=== PATIENT | female | born 1985 | race Caucasian/White ===

== ENCOUNTER 2020-07-30 09:40 | Outpatient (REF) | payer OTHER, SELFPAY ==
[2020-07-31 09:09] LABS: BV Int Neg Control Negative (Negative); BV Int Pos Control Positive (Positive)
[2020-08-01 18:26] LABS: HPV mRNA E6/E7 rflx Not Detected (Not Detected)
== END 2020-07-30 09:41 | disposition home or self-care (01) ==
LOC: HO.LAB 09:40
PROVIDERS: Visit Provider Obstetrics & Gynecology
DX: Z01.419 Encounter for gynecological examination (general) (routine) without abnormal findings (principal); R10.31 Right lower quadrant pain; Z11.3 Encounter for screening for infections with a predominantly sexual mode of transmission; Z11.51 Encounter for screening for human papillomavirus (HPV); Z88.2 Allergy status to sulfonamides; Z88.8 Allergy status to other drugs, medicaments and biological substances
CPT/HCPCS: 36415; 87480; 87510; 87624; 87660; 88142

== ENCOUNTER 2020-08-08 10:53 | Outpatient (REF) | payer OTHER, SELFPAY ==
--- NOTE | ~2020-08-08 | US_ITS ---
EXAMINATION: US PELVIS COMPLETE US PELVIS TRANSVAGINAL CLINICAL INFORMATION: Right lower quadrant pain. Pelvic and perineal pain. LMP 07/25/2020. COMPARISON: None TECHNIQUE: Transabdominal and transvaginal imaging was performed. FINDINGS: The uterus is of normal size and echogenicity measuring 8.2 x 3.3 x 6.1 cm. A regular homogeneous endometrium is identified measuring 0.8 cm. The uterus has a slightly arcuate appearance. Both ovaries are of normal size and echogenicity. The right measures 3.7 x 2.3 x 3.4 cm for a volume of 15.2 mL. Possible right ovarian corpus luteum measuring 2.9 x 1.7 x 2.5 cm. The left measures 3 x 1.8 x 1.9 cm for a volume of 5.3 mL. There is trace pelvic free fluid. US/US transvaginal IMPRESSION: 1. Slightly arcuate appearance of the uterus. Otherwise, unremarkable uterus and endometrium. 2. Possible right ovarian corpus luteum measuring 2.9 cm. No followup imaging recommended. 3. Sonographically unremarkable left ovary. 4. Trace pelvic free fluid.
--- NOTE | ~2020-08-08 | US_ITS ---
EXAMINATION: US PELVIS COMPLETE US PELVIS TRANSVAGINAL CLINICAL INFORMATION: Right lower quadrant pain. Pelvic and perineal pain. LMP 07/25/2020. COMPARISON: None TECHNIQUE: Transabdominal and transvaginal imaging was performed. FINDINGS: The uterus is of normal size and echogenicity measuring 8.2 x 3.3 x 6.1 cm. A regular homogeneous endometrium is identified measuring 0.8 cm. The uterus has a slightly arcuate appearance. Both ovaries are of normal size and echogenicity. The right measures 3.7 x 2.3 x 3.4 cm for a volume of 15.2 mL. Possible right ovarian corpus luteum measuring 2.9 x 1.7 x 2.5 cm. The left measures 3 x 1.8 x 1.9 cm for a volume of 5.3 mL. There is trace pelvic free fluid. US/US pelvic complete IMPRESSION: 1. Slightly arcuate appearance of the uterus. Otherwise, unremarkable uterus and endometrium. 2. Possible right ovarian corpus luteum measuring 2.9 cm. No followup imaging recommended. 3. Sonographically unremarkable left ovary. 4. Trace pelvic free fluid.
[2020-08-09 04:23] LABS: HIV AB/AG Nonreactive (Nonreactive); HIV Num 1 0.09 S/CO (0.00-0.99)
[2020-08-09 04:40] LABS: HBsAGNum1 0.14 S/CO (0.00-0.99); Hepatitis B Surface Antigen Negative (Negative)
[2020-08-09 16:14] LABS: Syphilis Screen Nonreactive (Nonreactive)
== END 2020-08-08 10:54 | disposition home or self-care (01) ==
LOC: HO.US 10:53
PROVIDERS: PCP Family Medicine; Visit Provider Obstetrics & Gynecology
DX: R10.2 Pelvic and perineal pain (principal); R10.31 Right lower quadrant pain; Z11.3 Encounter for screening for infections with a predominantly sexual mode of transmission; Z11.4 Encounter for screening for human immunodeficiency virus [HIV]; Z11.59 Encounter for screening for other viral diseases
CPT/HCPCS: 36415; 76830; 76856; 86780; 87340; 87389

== ENCOUNTER → 2020-08-15 12:22 | Outpatient (BNVA) | payer OTHER, SELFPAY | PROVIDERS: PCP Family Medicine; Visit Provider Obstetrics & Gynecology ==

== ENCOUNTER → 2020-08-16 12:13 | Outpatient (BNVA) | payer OTHER, SELFPAY | PROVIDERS: PCP Family Medicine; Visit Provider Obstetrics & Gynecology | DX: R10.32 Left lower quadrant pain (principal) | CPT/HCPCS: Q3014 ==

== ENCOUNTER 2020-08-23 13:13 | Outpatient (REF) | payer OTHER, SELFPAY ==
--- NOTE | ~2020-08-23 | MR_ITS ---
EXAMINATION: MR PELVIS WITHOUT AND WITH CONTRAST CLINICAL INFORMATION: Arcuate uterus COMPARISON: 08/08/2020 ultrasound TECHNIQUE: Multiple routine MRI sequences through the pelvis were obtained on a high-field 1.5 Cherrie MRI. Pre and postcontrast images were evaluated. 7 mL of Gadavist intravenous contrast was utilized without incident. FINDINGS: Uterus is anteroverted and grossly unremarkable. I do not appreciate any mullerian anomaly or irregularity. The junctional zone is thin and distinct. No uterine fibroids or mass lesion. Physiologic changes are seen within the bilateral adnexa with tiny follicles noted. No adnexal mass lesion. No significant free fluid. Bladder is decompressed and unremarkable. Visualized bowel is unremarkable MR/MR pelvis wo/w con IMPRESSION: Essentially normal pelvic MRI for age. I do not appreciate any mullerian anomaly to the uterus. The uterus configuration is within normal limits. No adnexal mass.
== END 2020-08-23 13:14 | disposition home or self-care (01) ==
LOC: HO.MRI 13:13
PROVIDERS: Visit Provider Obstetrics & Gynecology
DX: Q51.810 Arcuate uterus (principal)
CPT/HCPCS: 72197; A9585

== ENCOUNTER → 2020-09-13 11:58 | Outpatient (BNVA) | payer OTHER, SELFPAY | PROVIDERS: Visit Provider Obstetrics & Gynecology | DX: R93.5 Abnormal findings on diagnostic imaging of other abdominal regions, including retroperitoneum (principal) | CPT/HCPCS: Q3014 ==

== ENCOUNTER → 2021-08-01 09:22 | Outpatient (BNVA) | payer OTHER, SELFPAY | PROVIDERS: PCP Family Medicine; Visit Provider Advanced Practice Midwife | DX: R10.31 Right lower quadrant pain (principal); R10.2 Pelvic and perineal pain; Z30.40 Encounter for surveillance of contraceptives, unspecified; Z11.3 Encounter for screening for infections with a predominantly sexual mode of transmission; Z12.4 Encounter for screening for malignant neoplasm of cervix ==

== ENCOUNTER 2022-04-30 16:19 | Emergency (ER) | payer SELFPAY ==
[2022-04-30 17:24] VITALS: BP 115/68; PULSE 78; RESP 16; O2SAT 99; BMI 24.7
--- NOTE | 2022-04-30 18:48 | ED.EXTPRO ---
HPI - Extremity Problem General Chief complaint: Extremity Injury, Upper Stated complaint: right shoulder pain Time Seen by Provider: 04/30/22 18:48 Source: patient Mode of arrival: ambulatory Limitations: no limitations History of Present Illness HPI Narrative: Patient is a 36-year-old female who presents emergency department for evaluation of atraumatic right shoulder pain. She states that she ?thinks she over did it? 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 Symptom onset was 1 week ago. She states that time she does get pain to the bilateral shoulders but it typically resolves after couple of days. Denies any numbness or tingling to the arm, denies any cold sensation. Denies associated neck pain, neck stiffness. Denies any fevers, chills, redness, warmth, rashes or lesions. No known prior injury to this arm. Denies abdominal pain, nausea, vomiting. No chest pain, no shortness of breath. Related Data Home Medications Medication Instructions Recorded Confirmed citalopram 40 mg tablet 40 mg PO DAILY 07/30/20 Previous Rx's Medication Instructions Recorded norgestimate 0.25 mg-ethinyl 1 tab PO DAILY #28 tabs 08/01/21 estradiol 35 mcg tablet (Sprintec (28)) naproxen 500 mg tablet 500 mg PO BID PRN pain #14 tabs 04/30/22 Allergies Allergy/AdvReac Type Severity Reaction Status Date / Time sulfamethoxazole Allergy Intermediate DIARRHEA Verified 08/01/21 09:37 [From BACTRIM] trimethoprim [From BACTRIM] Allergy Intermediate DIARRHEA Verified 08/01/21 09:37 Sulfa (Sulfonamide Allergy Unknown vomiting Verified 08/01/21 09:37 Antibiotics) bactrim Allergy Unknown vomiting Uncoded 08/16/20 12:15 Review of Systems Review of Systems: Musculoskeletal: Positive right shoulder pain as noted in HPI PMFSH Past Medical History Attestation statement: The following information was validated with the patient. Source: old records reviewed Medical History Anxiety Surgical History History of D&C Family History Family History Father Diabetes Mother Diabetes Stroke Maternal Grandfather Cancer Mesothelioma Paternal Uncle Stomach cancer Family/Other FH: mental illness Social History Social History Alcohol intake: current Alcohol intake frequency: holidays/special occasions only Substance Use Type: Marijuana Advance Directives: No Advance Directives Information Provided: No Sexual orientation: Straight/Heterosexual Gender identity: Female Physical Exam Vital Signs: Vital Signs: Last Vital Signs Temp 97.6 F 04/30/22 18:58 Pulse 78 04/30/22 17:24 Resp 16 04/30/22 17:24 BP 115/68 04/30/22 17:24 Pulse Ox 99 04/30/22 17:24 O2 Del Method 04/30/22 17:24 BMI result Body Mass Index 24.7 Appearance: Alert.?Oriented to person, place and time. No acute distress.?Normal affect. Neck: Normal inspection.? Neck supple.??No midline cervical spine tenderness, step-offs, deformities. CVS: Heart sounds normal. Normal heart rate and rhythm.? Pulses normal.?? Respiratory: No respiratory distress.? Lung sounds clear to auscultation bilaterally?? Abdomen: Soft and non-tender. Skin: Skin warm and dry.? Normal skin color.? Extremities: Pain upon palpation of the anterior shoulder/AC joint. No palpable separation, no obvious deformity. 2+ radial pulse is present. Neurovascularly intact distally. No erythema, warmth, swelling. Limited overhead extension, otherwise able to abduct to 90 degrees, mild decreased external rotation. No impairment in adduction Neuro: Moves all extremities spontaneously. Sensation intact bilaterally. Ambulates with normal steady gait. Course Course Course Narrative: Patient is a 36-year-old female with no pertinent past medical history presenting to emergency department for evaluation of atraumatic right shoulder pain. No obvious deformity, low suspicion for fracture or dislocation, XR imaging deferred. Has been taking ibuprofen with only minimal improvement. Keeping shoulder in a sling and avoiding exacerbating movements. History and physical examination appear most consistent with musculoskeletal pain. The extremity is neurovascularly intact distally. Afebrile, no tachycardia, does not appear consistent with septic joint. Suspect tendonitis of the shoulder. Advised rest, ice, gentle stretching and [id number] exercises, naproxen/acetaminophen for pain. Advised outpatient follow-up with primary care provider/Orthopedics for persistent symptoms. Discussed worrisome signs and symptoms to return back to the emergency department for. MDM - Extremity (Nontraumatic) Medical Records Attestation: I reviewed the patient's medical records. Discharge Plan Discharge Clinical Impression: Right shoulder tendinitis Patient Disposition: Home, Self-Care Additional Instructions: As discussed, please rest, avoid heavy lifting, gently stretch and range the shoulder as tolerated. You can take Tylenol 500 mg, 2 tablets (1,000mg) every 4-6 hours as needed for pain, but not to exceed 3 doses daily (3,000mg).? Prescription for naproxen was sent to your pharmacy, do not take Advil/Motrin/Aleve/aspirin while taking this medication. Follow-up with your primary care provider, in addition to have been given contact information for orthopedics if you continue to have symptoms over the next week or 2 you may follow-up with them as well. Return to the emergency department any new or worsening symptoms or concerns. Prescriptions: New naproxen 500 mg tablet 500 mg PO BID PRN (Reason: pain) Qty: 14 0RF No Action citalopram 40 mg tablet 40 mg PO DAILY norgestimate-ethinyl estradiol [Sprintec (28)] 0.25-35 mg-mcg tablet 1 tab PO DAILY Qty: 28 11RF Referrals: Solomon Taylor MD [Physician] - Rehana Mackenzie MD [Primary Care Provider] - Interventions: ED Discharge Assessment Last Done: 04/30/22 19:04 Discharge Date/Time: 04/30/22 19:04
[2022-04-30 18:58] VITALS: TEMP 36.4
== END 2022-04-30 19:04 | disposition home or self-care (01) ==
PROVIDERS: Emergency Provider Emergency Medicine; PCP Family Medicine
DX: M75.91 Shoulder lesion, unspecified, right shoulder (principal); M25.511 Pain in right shoulder
CPT/HCPCS: 99282; 99283

== ENCOUNTER → 2022-08-03 15:12 | Outpatient (BNVA) | payer SELFPAY | PROVIDERS: PCP Family Medicine; Visit Provider Advanced Practice Midwife | DX: Z13.89 Encounter for screening for other disorder (principal) ==

== ENCOUNTER 2023-06-15 13:42 | Outpatient (AMB) | payer OTHER, SELFPAY ==
[2023-06-15 13:51] VITALS: BP 102/66; BMI 29.0
--- NOTE | 2023-06-15 13:51 | MHC.OFFVIS ---
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 She denies any contraindications to control such as: migraines with aura, history of DVT or pulmonary emboli, high blood pressure, liver disease, thrombolic disorders, Lupus, +NIKKY, breast cancer, or smoking. COUNT INCLUDES THE [facility] Medical History Anxiety Surgical History History of D&C Family History Father Diabetes Mother Diabetes Stroke Maternal Grandfather Cancer Mesothelioma Paternal Uncle Stomach cancer Family/Other FH: mental illness Social History Alcohol intake: former Patient Tobacco Use Status: Never used Tobacco Substance Use Type: Marijuana Sexual orientation: Straight/Heterosexual Gender identity: Female Female Reproductive History Menstrual Age of Menarche: 10 Duration of menses: 3-5 days Date of last menstrual period: 05/26/23 control method: none Review of Systems Const All systems reviewed & are unremarkable except as noted in HPI and below Endo Reports no additional complaints Physical Exam Vital Signs: Last Vital Signs BP 102/66 06/15/23 13:51 BMI result Body Mass Index 29.0 Const General: cooperative, healthy appearing and no acute distress Psych Appearance: well kempt Attitude: cooperative Thought process: Normal thought process present Assessment & Plan Assessment & Plan (1) control counseling: Code(s): Z30.09 - Encounter for other general counseling and advice on contraception Plan Control Counseling Use and side effects of control: Instructed to start the pill within the first 5 days of the menstrual period. Recommended to take pill at same time every day and with food to prevent stomach upset. Switch to bedtime intake with food if still experiencing nausea. Consider setting the cell phone for alerts as a reminder to take the pill at the same time. Use a back up method (condoms or abstinence if needed) if any late or missed doses until the end of the pill pack. Take the dose as soon as possible, and take your regular pill on time. If you miss the pill often, then consider another option of control. Always use condoms for STI prevention if indicated. Instructed patient to take for at least 3 months the body is acclimated to it. Most side effects go away with time in the first three months. Warnings: go to ED if and loss of vision/blindness, severe headache, chest pain or difficulty breathing, severe abdominal pain, or any pain or swelling in an extremity. Return for pill check with her annual in July, or sooner if any concerns. All of her questions and concerns were addressed to the best of my ability and shared decision making. She is agreeable to plan of care. Medications: New levonorgestrel-ethinyl estrad 0.15 mg-30 mcg (91) (Jolessa) 1 tab PO DAILY 91 ea 0RF Coding Level of Care Code Est Pt Level 3 (69879) Diagnoses control counseling Z30.09
== END 2023-06-15 16:23 | disposition home or self-care (01) ==
PROVIDERS: PCP Family Medicine; Visit Provider Advanced Practice Midwife
DX: Z30.09 Encounter for other general counseling and advice on contraception (principal)
CPT/HCPCS: 99213

== ENCOUNTER → 2023-06-15 13:42 | Outpatient (BNVA) | payer OTHER, SELFPAY | PROVIDERS: PCP Family Medicine; Visit Provider Advanced Practice Midwife ==

== ENCOUNTER 2023-08-05 15:13 | Outpatient (REF) | payer OTHER, SELFPAY ==
[2023-08-11 12:49] LABS: HPV mRNA E6/E7 rflx Not Detected (Not Detected)
== END 2023-08-05 15:14 | disposition home or self-care (01) ==
LOC: HO.LNP 15:13
PROVIDERS: PCP Family Medicine; Visit Provider Advanced Practice Midwife
DX: Z01.419 Encounter for gynecological examination (general) (routine) without abnormal findings (principal); Z11.51 Encounter for screening for human papillomavirus (HPV); Z87.42 Personal history of other diseases of the female genital tract
CPT/HCPCS: 87624; 88142

== ENCOUNTER 2023-08-05 15:13 | Outpatient (AMB) | payer OTHER, SELFPAY ==
--- NOTE | 2023-08-05 15:14 | A.OFFVIS_ITS ---
Intake Vital Signs 08/05/23 15:16 Height 5 ft 3 in Weight 160 lb BMI 28.3 BP 104/60 Intake Visit Reasons: Annual Remote Coders: Remote Coders Present (Breann) Allergies sulfamethoxazole [From BACTRIM] Allergy (Intermediate, Verified 08/05/23 15:16) DIARRHEA Is last menstrual period known: Yes Last menstrual period: 06/26/23 HPI HPI Comments History of Present Illness Details She is a premenopausal woman presenting for annual examination. Doing well with no concerns. She tries to eat healthy and stays active with exercise. Doing well on the OCP's. She denies any contraindications to control such as: migraines with aura, history of DVT or pulmonary emboli, high blood pressure, liver disease, thrombolic disorders, Lupus, +NIKKY, breast cancer, or smoking. Currently is sexually active. She denies vaginal itching and irritation. STI screening offered; she declined. Denies family history of breast, ovarian or colon cancer. Last pap smear 2020, negative. History of abnormal Pap. [facility] Medical History Anxiety Surgical History History of D&C Family History Father Diabetes Mother Diabetes Stroke Maternal Grandfather Cancer Mesothelioma Paternal Uncle Stomach cancer Family/Other FH: mental illness Social History (Updated 08/05/23 @ 15:30 by Miryam Willingham CNM) Alcohol intake: former Patient Tobacco Use Status: Never used Tobacco Substance Use Type: Marijuana Current occupation: [employer] Sexual orientation: Straight/Heterosexual Gender identity: Female Female Reproductive History Menstrual Age of Menarche: 10 Duration of menses: 3-5 days Date of last menstrual period: 06/26/23 control method: pills Total pregnancies: 1 Number of Living Children: 0 Ab induced: 1 Date of last pap smear: 07/30/20 (neg pap and hpv) History of abnormal pap smear: Yes (04/16 ascus /18+hpv 06/18 colpo jagruti 1) Review of Systems Const All systems reviewed & are unremarkable except as noted in HPI and below Reports as per HPI Eyes Reports no additional complaints ENT Reports no additional complaints Card Reports no additional complaints Resp Reports no additional complaints GI Reports as per HPI and Reports no additional complaints Reports as per HPI Musc Reports no additional complaints Skin/Breast Reports as per HPI Neuro Reports no additional complaints Psych Reports no additional complaints Endo Reports no additional complaints Homer/Lymph Reports no additional complaints Aller/Immun Reports no additional complaints Physical Exam Vital Signs: Last Vital Signs BP 104/60 08/05/23 15:16 BMI result Body Mass Index 28.3 Const General: cooperative, healthy appearing, no acute distress, well developed and alert Orientation/consciousness: patient oriented x3 HEENT Head: Yes normal to inspection Eyes General: appearance normal, both eyes and all related structures Neck Neck: Yes normal visual inspection Thyroid: Thyroid normal Chest Chest palpation & inspection: normal inspection of the chest and other (no puckering, dimpling, peau de orange, retraction, discharge, masses) Breast/axilla inspection: normal inspection of the breasts Breast/axilla palpation: normal palpation of the breasts Resp Effort & Inspection: normal respiratory effort GI Inspection: Yes normal to inspection Palpation (GI): Soft to palpation Rectal Exam - Female: deferred General: Yes bladder normal to palpation External Female Exam: normal external appearance and normal appearance of the urethra Speculum Exam - Vagina: normal appearance of the vagina, normal palpation and normal vaginal discharge Speculum Exam - Cervix: normal appearance of the cervix and normal palpation Bimanual exam- vagina & uterus: normal bimanual exam, normal palpation, uterine size normal, bladder normal to palpation, normal palpation and non-tender Bimanual Exam- Adnexa, other: no masses Skin General skin exam: no rashes or lesions noted Rashes: no rashes Neuro General: patient oriented x3 Cognition (Neuro): normal cognition Extrem General: Yes normal to inspection Psych Attitude: cooperative Thought process: Normal thought process present Assessment & Plan Assessment & Plan (1) Encounter for well woman exam with routine gynecological exam: Code(s): Z01.419 - Encounter for gynecological examination (general) (routine) without abnormal findings Plan Discussed: Current recommendations for pap smears per ASCCP guidelines. Breast awareness and periodic breast exams. Maintain a healthy lifestyle including a well balanced diet and routine exe rcise. Use condoms for STI and prevention. control hormone use warnings: go to ER if and loss of vision, blindness, severe headache, chest pain or difficulty breathing, severe abdominal pain, or any pain or swelling in an extremity. Patient verbalizes understanding and agrees to the plan of care. She was given opportunity to ask questions and all questions were answered to the best of my ability. RTO in one year for annual trim setter helper examination. This note is constructed using voice recognition software. While every effort has been made to ensure accuracy, trust manager errors may have been included. Medications: Refilled levonorgestrel-ethinyl estrad 0.15 mg-30 mcg (91) (Jolessa) 1 tab PO DAILY 91 ea 4RF Coding Level of Care Code Est Pt Prev Care 18-39y(11291) Diagnoses Encounter for well woman exam with routine gynecological exam Z01.419
[2023-08-05 15:16] VITALS: BP 104/60; BMI 28.3
== END 2023-08-05 15:37 | disposition home or self-care (01) ==
LOC: HO.HWS 15:13
PROVIDERS: PCP Family Medicine; Visit Provider Advanced Practice Midwife
DX: Z01.419 Encounter for gynecological examination (general) (routine) without abnormal findings (principal)
CPT/HCPCS: 99395

== ENCOUNTER 2024-09-06 15:12 | Outpatient (AMB) | payer OTHER, SELFPAY ==
--- NOTE | 2024-09-06 15:14 | MHC.OFFVIS ---
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 Doing well with emergency services professional concerns. Grieving the loss of her father in May. Current OCP user, admits to missing OCPs and having some persistent breakthrough bleeding patterns, currently on extended pill packs. Currently is sexually active, not often at this time due to partners medical concerns. She denies vaginal itching and irritation. STI screening offered; she accepts. She tries to eat healthy and stays active with exercise. Denies family history of breast, ovarian or colon cancer. Last pap smear 2023, negative. History of CORAZON 1. She denies any contraindications to control such as: migraines with aura, history of DVT or pulmonary emboli, high blood pressure, liver disease, thrombolic disorders, Lupus, +NIKKY, breast cancer, or smoking. [facility] Medical History (Updated 09/06/24 @ 16:21 by Miryam Willingham CNM) Cervical polyp Breast mass, right Irregular bleeding Anxiety Surgical History History of D&C Family History Father Diabetes Cancer Mother Diabetes Stroke Maternal Grandfather Cancer Mesothelioma Paternal Uncle Stomach cancer Family/Other FH: mental illness Social History Alcohol intake: former Patient Tobacco Use Status: Never used Tobacco Substance Use Type: Marijuana Current occupation: [employer] Sexual orientation: Straight/Heterosexual Gender identity: Female Female Reproductive History Menstrual Age of Menarche: 10 Duration of menses: <3 days Date of last menstrual period: 08/06/24 control method: pills Total pregnancies: 1 Ab induced: 1 Date of last pap smear: 08/05/23 (negative hpv, negative pap smear) History of abnormal pap smear: Yes (04/16 ascus 04/17+hpv 06/18 colpo corazon 1) Review of Systems Const All systems reviewed & are unremarkable except as noted in HPI and below Reports as per HPI Eyes Reports no additional complaints ENT Reports no additional complaints Card Reports no additional complaints Resp Reports no additional complaints GI Reports as per HPI and Reports no additional complaints Reports as per HPI Musc Reports no additional complaints Skin/Breast Reports as per HPI Neuro Reports no additional complaints Psych Reports no additional complaints Endo Reports no additional complaints Homer/Lymph Reports no additional complaints Aller/Immun Reports no additional complaints Physical Exam Const General: cooperative, healthy appearing, no acute distress, well developed and alert Orientation/consciousness: patient oriented x3 HEENT Head: Yes normal to inspection Eyes General: appearance normal, both eyes and all related structures Neck Neck: Yes normal visual inspection Thyroid: Thyroid normal Chest Other: thickening at 06:00 right breast Chest palpation & inspection: normal inspection of the chest and other (no puckering, dimpling, peau de orange, retraction, discharge, masses) Breast/axilla inspection: normal inspection of the breasts Breast/axilla palpation: normal palpation of the breasts Resp Effort & Inspection: normal respiratory effort GI Inspection: Yes normal to inspection Palpation (GI): Soft to palpation Rectal Exam - Female: deferred General: Yes bladder normal to palpation External Female Exam: normal external appearance and normal appearance of the urethra Speculum Exam - Vagina: normal appearance of the vagina, normal palpation and normal vaginal discharge Speculum Exam - Cervix: normal appearance of the cervix, normal palpation and Other cervical findings present (Small polyp- 3 o'clock position, blood at os with the exam ) Bimanual exam- vagina & uterus: normal bimanual exam, normal palpation, uterine size normal, bladder normal to palpation, normal palpation and non-tender Bimanual Exam- Adnexa, other: no masses Skin General skin exam: no rashes or lesions noted Rashes: no rashes Neuro General: patient oriented x3 Cognition (Neuro): normal cognition Extrem General: Yes normal to inspection Psych Other: Tearful discussing her loss Attitude: cooperative Thought process: Normal thought process present Assessment & Plan Assessment & Plan (1) Encounter for well woman exam with routine gynecological exam: Code(s): Z01.419 - Encounter for gynecological examination (general) (routine) without abnormal findings Category: Medical Plan: Discussed: Current recommendations for pap smears per ASCCP guidelines. Breast awareness and periodic breast exams. Workup for breast findings today. Grief process and healing from loss. Effects of stress on the body including menstrual cycle changes. Maintain a healthy lifestyle including a well balanced diet and routine exercise. Use condoms for prevention. control hormone use warnings: go to ER if and loss of vision, blindness, severe headache, chest pain or difficulty breathing, severe abdominal pain, or any pain or swelling in an extremity. Patient verbalizes understanding and agrees to the plan of care. She was given opportunity to ask questions and all questions were answered to the best of my ability. RTO in one year for annual emergency services professional examination. This note is constructed using voice recognition software. While every effort has been made to ensure accuracy, investigator welfare errors may have been included. (2) Irregular bleeding: Code(s): N92.6 - Irregular menstruation, unspecified Category: Medical Plan: We will consider restarting OCPs after the breast workup. Breakthrough bleeding is common with missed pills. GC chlamydia and BV panel obtained today. Plan pelvic ultrasound. Follow up pending results. Total time I personally spent on visit and management today: ?10 minutes. Time spent included review of pertinent office notes in the electronic health record; review of laboratory and imaging results; review of personal family medical history; performing physical exam; discussing diagnosis and plan of care with the patient; documenting the encounter in the EMR. (3) Breast mass, right: Code(s): N63.10 - Unspecified lump in the right breast, unspecified quadrant Category: Medical Qualifiers: Breast mass location: unspecified quadrant Qualified Code(s): N63.10 - Unspecified lump in the right breast, unspecified quadrant Plan: Total time I personally spent on visit and management today: ?10 minutes. Time spent included review of pertinent office notes in the electronic health record; review of laboratory and imaging results; review of personal family medical history; performing physical exam; discussing diagnosis and plan of care with the patient; documenting the encounter in the EMR. (4) Cervical polyp: Code(s): N84.1 - Polyp of cervix uteri Category: Medical Plan: Discussed cervical polyp findings, plan re-evaluation at next visit for removal. Plan Discuss plan of care for the findings on exam today to include right breast ultrasound and bilateral diagnostic mammogram, surgical consult if indicated, follow up in office here for results. Due to the irregular bleeding she will stop using control for the time being and is able to use condoms or abstinence. Orders: Orders MM tomosynthesis diagnostic BI Today N63.10 - Unspecified lump in the right breast, unspecified quadrant, Z12.31 - Encounter for screening mammogram for malignant neoplasm of breast US breast RT limited Today N63.10 - Unspecified lump in the right breast, unspecified quadrant CT NG by PCR Today N92.6 - Irregular menstruation, unspecified, Z01.419 - Encounter for gynecological examination (general) (routine) without abnormal findings US pelvic and transvaginal Today N92.6 - Irregular menstruation, unspecified Bacterial Vaginosis Panel Today N92.6 - Irregular menstruation, unspecified, Z01.419 - Encounter for gynecological examination (general) (routine) without abnormal findings Coding Level of Care Code Est Pt Level 3 (88058) Est Pt Prev Care 18-39y(57880) Diagnoses Encounter for well woman exam with routine gynecological exam Z01.419 Irregular bleeding N92.6 Mass of right breast, unspecified quadrant N63.10 Breast mass location: unspecified quadrant Cervical polyp N84.1
[2024-09-06 15:24] VITALS: BP 108/66; BMI 23.4
--- OUTSIDE RECORDS SUMMARY | 2024-09-06 17:16 | XMS_ITS | Clinical Summary ---
Author Organization [facility] it Address [address] [place] [address] Care Team Providers Care Disease Management Nurse Name Role Phone Jessica Cabral MD Primary Care Provider [phone] Surgical History Surgery Date Site/Laterality Comments OTHER SURGICAL HISTORY PROCEDURE: DENIES PREVIOUS SURGERY Medical History Medical History Date Comments Anxiety state, unspecified 08/08/2005 DX:An xiety state, unspecified Family History Medical History Relation Name Comments Diabetes Father Heart attack Father age 50 CABG Maternal Grandmother Heart attack Maternal Grandmother Puncle, Diabetes Mother Heart attack Mother age 47 Heart attack Other 1 Other: stomach cancer Uncle 1 patern al Breast cancer Neg Hx Cervical cancer Neg Hx Colon cancer Neg Hx Ovarian cancer Neg Hx Relation Name Status Comments Father Alive Maternal Grandmother Mother Alive Other 1 Other 2 Sister Alive Uncle 1 Uncle 2 Social History Tobacco Use Types Packs/Day Years Used Date Smoking Tobacco: Never Alcohol Use Standard Drinks/Week Comments Yes 0 (1 standard drink = 0.6 oz pur e alcohol) Comments Unknown Sex and Gender Information Value Date Recorded Sex Assigned at Not on file Legal Sex Female 6:23 PM EST Gender Identity Not on file Sexual Orientation Not on file Obstetrics History Plan of Treatment Health Maintenance Due Date Last Done Comments Cervical Cancer Screening: P ap Smear 2006 DTaP,Tdap,and Td Vaccines (2 - Td or Tdap) 05/31/2008 05/31/1998 HPV Vaccines (2 - 3-dose series) 03/27/2009 02/27/2009 COVID-19 Vaccine (2023-2 5 season) 2024 Influenza Vaccine (#1) 2024 Hepatitis B Vaccines Completed 05/31/1997, 11/28/1996, 10/29/1996 Meningococcal ACWY Vaccine Aged Out 01/18/2004 N o longer eligible based on patient's age to complete this topic HIB Vaccines Aged Out No longer eligi ble based on patient's age to complete this topic Hepatitis A Vaccines Aged Out No long er eligible based on patient's age to complete this topic IPV Vaccines Aged Out No longer eligi ble based on patient's age to complete this topic MMR Vaccines Aged Out No longer eligi ble based on patient's age to complete this topic Meningococcal B Vaccine Aged Out No l onger eligible based on patient's age to complete this topic Pneumococcal Vaccine: Pediatrics (0 to 5 Years) and At-Risk Patients (6 to 64 Years) Aged Out No longer eligible b ased on patient's age to complete this topic RSV Immunization Patients Under 20 months Aged Out No longer eligible b ased on patient's age to complete this topic Varicella Vaccines Aged Out No longer eligible based on patient's age to complete this topic Care Teams Disease Management Nurse Relationship Specialty Start Date End Date Jessica Cabral MD [address] [place] [address] PCP - General Internal Medicine 04/30/11
--- OUTSIDE RECORDS SUMMARY | 2024-09-06 17:16 | XMS_ITS | Clinical Summary ---
Author Organization [facility] Address [address] [place] [address] Care Team Providers Care Privacy Director Name Role Phone Unavailable Primary Care Provider Unavailabl e Allergies Active Allergy Reactions Criticality Noted Date Comments Sulfamethoxazole-Trimethoprim 2016 Medications Medication Sig Dispensed Refills Start Date End Date Status ibuprofen (ADVIL,MOTRIN) 600 MG tablet Take 1 tablet (600 mg total) by mouth every 6 (six) hours as needed for pain. 30 tablet 0 11/09/2016 Active methocarbamol (ROBAXIN) 500 MG tablet Take 1 tablet (500 mg total) by mouth 3 (three) times a day as needed (May cause sedation). 15 tablet 0 11/09/2016 Active ALPRAZolam (XANAX) 0.25 MG tablet TAKE 1 TABLET BY MOUTH THREE TIMES A DAY NEEDED FOR PANIC ATTACKS 0 08/28/2016 Active busPIRone (BUSPAR) 10 MG tablet Take 10 mg by mouth 2 (two) times a day. One and a half pills twice a day 0 Active Social History Tobacco Use Types Packs/Day Years Used Date Smoking Tobacco: Never Alcohol Use Standard Drinks/Week Comments Yes 0 (1 standard drink = 0.6 oz pur e alcohol) social Sex and Gender Information Value Date Recorded Sex Assigned at Not on file Gender Identity Not on file Sexual Orientation Not on file Last Filed Vital Signs Vital Sign Reading Time Taken Comments Blood Pressure 136/92 11/09/2016 2:15 PM EDT Pulse 78 11/09/2016 2:15 PM EDT Temperature 36.8 ??C (98.3 ??F) 11/09/2016 2:15 PM ED T Respiratory Rate 18 11/09/2016 2:15 PM EDT Oxygen Saturation 100% 11/09/2016 2:15 PM EDT Inhaled Oxygen Concentration - - Weight - - Height - - Body Mass Index - - Plan of Treatment Not on file
== END 2024-09-06 16:23 | disposition home or self-care (01) ==
LOC: HO.HWS 15:12
PROVIDERS: PCP Family Medicine; Visit Provider Advanced Practice Midwife
DX: Z01.419 Encounter for gynecological examination (general) (routine) without abnormal findings (principal); N92.6 Irregular menstruation, unspecified; N63.10 Unspecified lump in the right breast, unspecified quadrant; N84.1 Polyp of cervix uteri
CPT/HCPCS: 99213; 99395; 99459

== ENCOUNTER 2024-09-06 15:12 | Outpatient (REF) | payer OTHER, SELFPAY ==
--- OUTSIDE RECORDS SUMMARY | 2024-09-06 17:42 | XMS_ITS | Clinical Summary ---
Author Organization [facility] it Address [address] [place] [address] Care Team Providers Care Lead Trainer Name Role Phone Jessica Cabral MD Primary Care Provider [phone] Surgical History Surgery Date Site/Laterality Comments OTHER [...] age to complete this topic Care Teams Lead Trainer Relationship Specialty Start Date End Date Jessica Cabral MD [address] [place] [address] PCP - General Internal Medicine 04/30/11
[2024-09-07 09:34] LABS: Bacterial Vaginosis PCR NEGATIVE (Negative); Candida Group PCR NOT DETECTED (Not Detect); Candida glab krusei PCR NOT DETECTED (Not Detect); Trichomonas vaginalis PCR NOT DETECTED (Not Detect)
[2024-09-07 10:05] LABS: CT PCR NOT DETECTED (Not Detect.); NG PCR NOT DETECTED (Not Detect.)
== END 2024-09-06 15:13 | disposition home or self-care (01) ==
LOC: HO.LNP 15:12
PROVIDERS: PCP Family Medicine; Visit Provider Advanced Practice Midwife
DX: Z01.419 Encounter for gynecological examination (general) (routine) without abnormal findings (principal); N92.6 Irregular menstruation, unspecified; N84.1 Polyp of cervix uteri
CPT/HCPCS: 81515; 87491; 87591

== ENCOUNTER 2024-10-04 12:25 | Outpatient (REF) | payer OTHER, SELFPAY ==
--- NOTE | ~2024-10-04 | US_ITS ---
EXAMINATION: MM DIAGNOSTIC DIGITAL BREAST TOMOSYNTHESIS, BILATERAL Limited right breast ultrasound. CLINICAL INFORMATION: Right breast palpable lump at 6:00 felt by the patient's physician. COMPARISON: Mammography: Baseline. TECHNIQUE: Digital breast mammography with tomosynthesis is performed in both the craniocaudal and mediolateral oblique views along with computer-aided detection (CAD). FINDINGS: There are scattered areas of fibroglandular density (ACR BI-RADS breast composition Category b). There are no significant masses, abnormal calcifications, or other abnormalities. Targeted color Doppler ultrasound scanning from 40 8:00 demonstrates normal fibronodular breast tissue in the area of the physician felt palpable lump. There is no sonographic abnormality. Results are provided to the patient at time of visit by the technologist. US/US breast RT limited mamm only IMPRESSION: Right No mammographic or sonographic abnormality to account for the physician felt palpable lump in the lower central right breast. Recommend clinical evaluation and follow-up. Left: Negative. ASSESSMENT: BI-RADS BI-RADS 1 - Negative RECOMMENDATION: 1 year F/U This patient's information was entered into a reminder system with a target due date for their next mammogram. Electronically signed by: Amanda Shay DO 10/04/2024 01:51 PM EDT
--- OUTSIDE RECORDS SUMMARY | 2024-10-04 13:37 | XMS_ITS | Clinical Summary ---
Author Organization [facility] it Address [address] [place] [address] Care Team Providers Care Fruit Or Nut Picker Name Role Phone Jessica Cabral MD Primary Care Provider [phone] Surgical History Surgery Date Site/Laterality Comments OTHER [...] Vaccine (2023-2 5 season) 2024 Influenza Vaccine (Season Ended) 2025 Hepatitis B Vaccines Completed 05/31/1997, 11/28/1996, 10/29/1996 [...] age to complete this topic Care Teams Fruit Or Nut Picker Relationship Specialty Start Date End Date Jessica Cabral MD [address] [place] [address] PCP - General Internal Medicine 04/30/11
== END 2024-10-04 12:26 | disposition home or self-care (01) ==
LOC: HO.MAMMO 12:25
PROVIDERS: PCP Family Medicine; Visit Provider Family Medicine
DX: N63.15 Unspecified lump in the right breast, overlapping quadrants (principal)
CPT/HCPCS: 76642; 77062; 77066

== ENCOUNTER → 2024-10-04 12:30 | Outpatient (BNV) | payer OTHER, SELFPAY | PROVIDERS: PCP Family Medicine; Visit Provider Internal Medicine | DX: N63.14 Unspecified lump in the right breast, lower inner quadrant (principal) | CPT/HCPCS: 76642; 77062; 77066 ==

== ENCOUNTER 2024-10-17 11:03 | Outpatient (REF) | payer OTHER, SELFPAY ==
--- NOTE | ~2024-10-17 | US_ITS ---
CLINICAL HISTORY: N92.6 - Irregular menstruation, unspecified Transabdominal and transvaginal pelvic ultrasound Comparison: None Findings: Uterus 8.0 x 3.3 x 5.2 cm. Endometrium 6 mm. From nodule also 7 x 5 mm septated cyst in endometrium near cervix. Etiology and significance are unknown. No significant free fluid. Right ovary 3.8 x 1.9 x 2.1 cm. Left ovary 2.2 x 1.7 x 2.0 cm. No significant focal abnormality. Impression: Septated cystic endometrial abnormality in lower uterine segment Etiology and significance are unknown This document has been electronically signed by: Nacho Javed MD on 10/17/2024 21:36:14
--- OUTSIDE RECORDS SUMMARY | 2024-10-17 12:21 | XMS_ITS | Clinical Summary ---
Author Organization [facility] Address [address] [place] [address] Care Team Providers Care Stoneworking Belt Sander Name Role Phone Unavailable Primary Care Provider [...]
--- OUTSIDE RECORDS SUMMARY | 2024-10-17 12:21 | XMS_ITS | Clinical Summary ---
Author Organization [facility] it Address [address] [place] [address] Care Team Providers Care Independent Living Specialist Name Role Phone Jessica Cabral MD Primary Care Provider [phone] Surgical History Surgery Date Site/Laterality Comments OTHER [...] age to complete this topic Care Teams Independent Living Specialist Relationship Specialty Start Date End Date Jessica Cabral MD [address] [place] [address] PCP - General Internal Medicine 04/30/11
== END 2024-10-17 11:04 | disposition home or self-care (01) ==
LOC: HO.US 11:03
PROVIDERS: PCP Family Medicine; Visit Provider Advanced Practice Midwife
DX: N92.6 Irregular menstruation, unspecified (principal)
CPT/HCPCS: 76830; 76856

== ENCOUNTER → 2024-10-17 11:05 | Outpatient (BNV) | payer OTHER, SELFPAY | PROVIDERS: PCP Family Medicine; Visit Provider Radiology Diagnostic Radiology | DX: N85.01 Benign endometrial hyperplasia (principal) | CPT/HCPCS: 76830; 76856 ==

== ENCOUNTER 2024-10-19 15:47 | Outpatient (AMB) | payer OTHER, SELFPAY ==
--- OUTSIDE RECORDS SUMMARY | 2024-10-19 15:49 | XMS_ITS | Clinical Summary ---
Author Organization [facility] it Address [address] [place] [address] Care Team Providers Care Project Controller Name Role Phone Jessica Cabral MD Primary Care Provider [phone] Surgical History Surgery Date Site/Laterality Comments OTHER [...] age to complete this topic Care Teams Project Controller Relationship Specialty Start Date End Date Jessica Cabral MD [address] [place] [address] PCP - General Internal Medicine 04/30/11
[2024-10-19 15:51] VITALS: BP 110/66; BMI 22.4
--- NOTE | 2024-10-19 15:51 | MHC.OFFVIS ---
Vital Signs 10/19/24 15:51 Height 5 ft 3 in Weight 126 lb 8 oz BMI 22.4 BP 110/66 Blood Pressure Location Lt brachial Position Sitting Intake Visit Reasons: ultrasound follow up, RLQ pain Wool Washer Required: No Allergies sulfamethoxazole [From BACTRIM] Allergy (Intermediate, Verified 10/19/24 15:53) DIARRHEA Medication List - Last Reconciled 10/19/24 by Miranda Ahuja LPN bupropion HCl XL 300 mg PO DAILY sertraline 50 mg PO DAILY Is last menstrual period known: Yes Last menstrual period: 10/05/24 Post menopausal: No Patient : No HPI Comments Details: Patient is here today for a follow up pelvic ultrasound and mammograms ultrasound diagnostic study. History of breast thickening on last exam, history of weight loss. She reports increased stress in things going in her life admits to further weight loss since her last visit, attempting now to eat healthy well-balanced meals. She reports pelvic discomfort since her ultrasound 2 days ago, some vaginal discharge. LMP October 04, x 7d, heavy menses while off her pills. Using condoms. She denies any contraindications to control such as: migraines with aura, history of DVT or pulmonary emboli, high blood pressure, liver disease, thrombolic disorders, Lupus, +NIKKY, breast cancer, or smoking. 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 Sexual orientation: Straight/Heterosexual Gender identity: Female Female Reproductive History Menstrual Age of Menarche: 10 Duration of menses: 8-10 days Date of last menstrual period: 10/05/24 control method: none Total pregnancies: 1 Number of Living Children: 0 Ab induced: 1 Date of last pap smear: 08/08/24 History of abnormal pap smear: Yes History of STI: No Review of Systems Const All systems reviewed & are unremarkable except as noted in HPI and below Reports no additional complaints Skin/Breast Reports system reviewed and no additional complaints, except as documented and Reports as per HPI Physical Exam Vital Signs: Last Vital Signs BP 110/66 10/19/24 15:51 BMI result Body Mass Index 22.4 Const General: cooperative, healthy appearing and no acute distress Orientation/consciousness: patient oriented x3 Chest Other: Thickening noted, upper right breast outer quadrant, nontender. Breast/axilla inspection: normal inspection of the breasts and normal inspection of the axillae Breast/axilla palpation: normal palpation of the breasts GI Inspection: Yes normal to inspection Palpation (GI): Soft to palpation and Other GI palpation findings present (Nontender) Rectal Exam - Female: visual inspection normal General: Yes bladder normal to palpation External Female Exam: normal appearance of the urethra Speculum Exam - Vagina: normal appearance of the vagina, normal palpation and abnormal vaginal discharge (Thickened white) Speculum Exam - Cervix: normal appearance of the cervix and normal palpation Bimanual exam- vagina & uterus: normal bimanual exam, normal palpation, uterine size normal, bladder normal to palpation, normal palpation, uterine shape normal and non-tender Bimanual Exam- Adnexa, other: normal adnexae Skin General skin exam: no rashes or lesions noted Neuro General: patient oriented x3 Results Reviewed Results Reviewed: [address] [address] Ultrasound Report Signed Patient: Valorie Chris MR#: [id number] : 1985 Acct:[id number] Age/Sex: 39 / F ADM Date: 10/17/24 Loc: HO.US Attending Dr: Miryam Willingham CNM Ordering Physician: Miryam Willingham CNM Date of Service: 10/17/24 Procedure(s): US pelvic and transvaginal Accession Number(s): [id number] cc: JENNIFER GILLIAM MD; Miryam Willingham CNM~ CLINICAL HISTORY: N92.6 - Irregular menstruation, unspecified Transabdominal and transvaginal pelvic ultrasound Comparison: None Findings: Uterus 8.0 x 3.3 x 5.2 cm. Endometrium 6 mm. From nodule also 7 x 5 mm septated cyst in endometrium near cervix. Etiology and significance are unknown. No significant free fluid. Right ovary 3.8 x 1.9 x 2.1 cm. Left ovary 2.2 x 1.7 x 2.0 cm. No significant focal abnormality. 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 Advised continue monitoring self-breast exam as needed and to report any changes of concern. The patient expressed understanding and agreement with the plan of care. All of her questions and concerns were addressed to the best of my ability. Patient will restart her control at this time. control hormone use warnings: go to ER if and loss of vision, blindness, severe headache, chest pain or difficulty breathing, severe abdominal pain, or any pain or swelling in an extremity. Reviewed use, starting with her menses, no unprotected intimacy. Has a annual exam scheduled 08/2025. Discussed weight loss, maintaining a healthy diet. (2) Pelvic pain: Code(s): R10.2 - Pelvic and perineal pain Plan: GC chlamydia and BV panel obtained today await results for plan of care. Discomfort may be residual from exam, she reports the tech had trouble finding her ovary, pelvic discomfort should resolve on its own spontaneously. If any increase in pain or concerns to report back to the office. (3) Abnormal finding on ultrasound: Code(s): R93.89 - Abnormal findings on diagnostic imaging of other specified body structures Plan Discussed ultrasound findings: Impression: Septated cystic endometrial abnormality in lower uterine segment. Most likely endometrial polyp noted advised she would need a hysteroscopy for further evaluation and removal. Appointment to be scheduled with Dr. Hicks for consult. Orders: Orders Bacterial Vaginosis Panel Today Z11.3 - Encounter for screening for infections with a predominantly sexual mode of transmission CT NG by PCR Today Z11.3 - Encounter for screening for infections with a predominantly sexual mode of transmission Medications: New levonorgestrel-ethinyl estrad 0.15 mg-30 mcg (91) (Jolessa) 1 tab PO DAILY 91 ea 4RF Coding Level of Care Code Est Pt Level 3 (13702) Diagnoses Breast thickening N64.59 Pelvic pain R10.2 Abnormal finding on ultrasound R93.89
== END 2024-10-19 16:31 | disposition home or self-care (01) ==
LOC: HO.HWS 15:47
PROVIDERS: PCP Family Medicine; Visit Provider Advanced Practice Midwife
DX: N64.59 Other signs and symptoms in breast (principal); R10.2 Pelvic and perineal pain; R93.89 Abnormal findings on diagnostic imaging of other specified body structures
CPT/HCPCS: 99213

== ENCOUNTER 2024-10-19 15:47 | Outpatient (REF) | payer OTHER, SELFPAY ==
[2024-10-20 04:17] LABS: CT PCR NOT DETECTED (Not Detect.); NG PCR NOT DETECTED (Not Detect.)
[2024-10-20 11:28] LABS: Bacterial Vaginosis PCR NEGATIVE (Negative); Candida Group PCR NOT DETECTED (Not Detect); Candida glab krusei PCR NOT DETECTED (Not Detect); Trichomonas vaginalis PCR NOT DETECTED (Not Detect)
== END 2024-10-19 15:48 | disposition home or self-care (01) ==
LOC: HO.LNP 15:47
PROVIDERS: PCP Family Medicine; Visit Provider Advanced Practice Midwife
DX: N64.89 Other specified disorders of breast (principal); Z11.3 Encounter for screening for infections with a predominantly sexual mode of transmission; R10.2 Pelvic and perineal pain; R93.89 Abnormal findings on diagnostic imaging of other specified body structures
CPT/HCPCS: 81515; 87491; 87591; 99212

== ENCOUNTER 2024-11-22 15:38 | Outpatient (AMB) | payer OTHER, SELFPAY ==
[2024-11-22 15:46] VITALS: BP 120/82; BMI 22.3
--- NOTE | 2024-11-22 15:46 | MHC.OFFVIS ---
Vital Signs 11/22/24 15:46 Height 5 ft 3 in Weight 126 lb BMI 22.3 BP 120/82 Intake Visit Reasons: BC Intake Note: pt c/o bleeding every 2 weeks on BC Allergies sulfamethoxazole (From BACTRIM) Allergy (Intermediate, Verified 11/22/24 15:47) DIARRHEA Is last menstrual period known: Yes Last menstrual period: 11/17/24 HPI Comments Details: Patient has concerns for breakthrough bleeding and intense cramping, during this cycle pack. She reports a new partner in September. Denies any urinary symptoms. History of endometrial cystic lesions and cervical lesions on exam. Hysteroscopy scheduled. 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 Sexual orientation: Straight/Heterosexual Gender identity: Female Female Reproductive History Menstrual Age of Menarche: 10 Date of last menstrual period: 11/17/24 Review of Systems Const All systems reviewed & are unremarkable except as noted in HPI and below Physical Exam Vital Signs: Last Vital Signs BP 120/82 11/22/24 15:46 BMI result Body Mass Index 22.3 Const General: cooperative, healthy appearing and no acute distress Orientation/consciousness: patient oriented x3 GI Inspection: Yes normal to inspection Palpation (GI): Soft to palpation and Other GI palpation findings present (Nontender) Rectal Exam - Female: visual inspection normal General: Yes bladder normal to palpation External Female Exam: normal appearance of the urethra Speculum Exam - Vagina: normal appearance of the vagina, normal palpation, normal vaginal discharge and vaginal bleeding (Small amount) Speculum Exam - Cervix: normal appearance of the cervix, normal palpation and Cervical mass present non-tender Bimanual exam- vagina & uterus: normal bimanual exam, normal palpation, uterine size normal, bladder normal to palpation, normal palpation, uterine shape normal and non-tender Bimanual Exam- Adnexa, other: normal adnexae OB/external & speculum: vaginal bleeding (Small amount) Neuro General: patient oriented x3 Assessment & Plan Assessment & Plan (1) Irregular bleeding: Code(s): N92.6 - Irregular menstruation, unspecified Category: Medical Plan: Different causes for irregular bleeding including breakthrough bleeding on OCPs, endometrial lesions, cervical lesions, infection, and other. Await testing for final plan of care. The patient expressed understanding and agreement with the plan of care. All of her questions and concerns were addressed to the best of my ability. Advised to call if any changes or concerns. (2) Cervical polyp: Code(s): N84.1 - Polyp of cervix uteri Category: Medical Plan: Hysteroscopy appointment scheduled. (3) Possible exposure to STD: Code(s): Z20.2 - Contact with and (suspected) exposure to infections with a predominantly sexual mode of transmission Plan: GC chlamydia and BV panel obtained. (4) Pelvic cramping: Code(s): R10.2 - Pelvic and perineal pain Plan GC chlamydia and BV panel obtained. Await results for final plan of care. The patient expressed understanding and agreement with the plan of care. All of her questions and concerns were addressed to the best of my ability. This note is constructed using voice recognition software. While every effort has been made to ensure accuracy, retail shift supervisor errors may have been included. Orders: Orders Bacterial Vaginosis Panel Today N92.6 - Irregular menstruation, unspecified CT NG by PCR Vag/Cerv Today N92.6 - Irregular menstruation, unspecified Coding Level of Care Code Est Pt Level 3 (26418) Diagnoses Irregular bleeding N92.6 Cervical polyp N84.1 Possible exposure to STD Z20.2 Pelvic cramping R10.2
--- OUTSIDE RECORDS SUMMARY | 2024-11-22 18:26 | XMS_ITS | Clinical Summary ---
Author Organization [facility] it Address [address] [place] [address] Care Team Providers Care Hand Former Helper Name Role Phone Jessica Cabral MD Primary Care Provider [phone] Surgical History Surgery Date Site/Laterality Comments OTHER [...] age to complete this topic Care Teams Hand Former Helper Relationship Specialty Start Date End Date Jessica Cabral MD [address] [place] [address] PCP - General Internal Medicine 04/30/11
== END 2024-11-23 07:10 | disposition home or self-care (01) ==
LOC: HO.HWS 15:38
PROVIDERS: PCP Family Medicine; Visit Provider Advanced Practice Midwife
DX: N92.6 Irregular menstruation, unspecified (principal); N84.1 Polyp of cervix uteri; Z20.2 Contact with and (suspected) exposure to infections with a predominantly sexual mode of transmission; R10.2 Pelvic and perineal pain
CPT/HCPCS: 99213

== ENCOUNTER 2024-11-22 15:38 | Outpatient (REF) | payer OTHER, SELFPAY ==
[2024-11-23 11:46] LABS: Bacterial Vaginosis PCR NEGATIVE (Negative); Candida Group PCR NOT DETECTED (Not Detect); Candida glab krusei PCR NOT DETECTED (Not Detect); Trichomonas vaginalis PCR NOT DETECTED (Not Detect)
[2024-11-23 12:17] LABS: CT PCR NOT DETECTED (Not Detect.); NG PCR NOT DETECTED (Not Detect.)
== END 2024-11-22 15:39 | disposition home or self-care (01) ==
LOC: HO.LAB 15:38
PROVIDERS: PCP Family Medicine; Visit Provider Advanced Practice Midwife
DX: N92.6 Irregular menstruation, unspecified (principal); N84.1 Polyp of cervix uteri; R10.2 Pelvic and perineal pain; Z20.2 Contact with and (suspected) exposure to infections with a predominantly sexual mode of transmission
CPT/HCPCS: 81515; 87491; 87591; 99212

== ENCOUNTER 2024-11-22 16:07 | Outpatient (REF) | payer OTHER, SELFPAY | END 2024-11-22 16:08 | disposition home or self-care (01) | LOC: HO.LNP 16:07 | PROVIDERS: Visit Provider Advanced Practice Midwife | DX: Z13.89 Encounter for screening for other disorder (principal) ==

== ENCOUNTER 2025-01-10 08:01 | Outpatient (REF) | payer OTHER, SELFPAY ==
[2025-01-10 09:06] LABS: Hematocrit 40.9 % (37.0-47.0); Hemoglobin 13.5 g/dl (12.0-16.0); Mean Corpuscular HGB Conc 33.0 g/dl (31.0-35.0); Mean Corpuscular Hemoglobin 31.3 pg (27.0-33.0); Mean Corpuscular Volume 94.9 fL (80.0-98.0); NRBC Abs Auto 0.000 X10*3/uL (0.0-0.012); NRBC Pct Auto 0.0 /100WBC (0.0-0.2); Platelet Count 267 X10*3/uL (160-400); Red Blood Count 4.31 X10*6/uL (4.20-5.50); White Blood Count 9.9 X10*3/uL (4.8-10.8)
== END 2025-01-10 08:02 | disposition home or self-care (01) ==
LOC: HO.LAB 08:01
PROVIDERS: PCP Family Medicine; Visit Provider Obstetrics & Gynecology
DX: N93.9 Abnormal uterine and vaginal bleeding, unspecified (principal); N88.9 Noninflammatory disorder of cervix uteri, unspecified; R93.5 Abnormal findings on diagnostic imaging of other abdominal regions, including retroperitoneum; Z32.02 Encounter for pregnancy test, result negative
CPT/HCPCS: 36415; 57500; 84443; 84702; 85027; 99212

== ENCOUNTER 2025-01-10 08:01 | Outpatient (AMB) | payer OTHER, SELFPAY ==
[2025-01-10 08:03] VITALS: BMI 22.3
--- NOTE | 2025-01-10 08:03 | A.OFFVIS_ITS ---
Vital Signs 01/10/25 08:03 Height 5 ft 3 in Weight 126 lb BMI 22.3 Intake Visit Reasons: hysteroscopy Consult/Miryam pt Hydrologist Required: No Information Interpreted: non-clinical & clinical Accompanied by: Self / Same As Patient Allergies sulfamethoxazole (From BACTRIM) Allergy (Intermediate, Verified 01/10/25 08:07) DIARRHEA HPI Comments Details: Presenting referred from Miryam Willingham CNM regarding abnormal cervical lesion on pelvic exam and possible endometrium on pelvic ultrasound. The patient has an episode of irregular menstrual cycles few months ago after missing a pill. Since then her menstrual cycle has straightened out. 10/17/2024 pelvic ultrasound showed the following: Uterus 8.0 x 3.3 x 5.2 cm. Endometrium 6 mm. From nodule also 7 x 5 mm septated cyst in endometrium near cervix. Etiology and significance are unknown. No significant free fluid. Right ovary 3.8 x 1.9 x 2.1 cm. Left ovary 2.2 x 1.7 x 2.0 cm. No significant focal abnormality. Impression: Septated cystic endometrial abnormality in lower uterine segment Etiology and significance are unknown 08/21 co testing negative 11/22 GC/CT negative 10/22 diagnostic mammogram and breast ultrasound [facility]RADS [facility] Medical History Cervical polyp Breast mass, right Irregular bleeding Anxiety Surgical History History of D&C Family History Father Diabetes Cancer Neuro-endocrine cancer Mother Diabetes Stroke Maternal Grandfather Cancer Mesothelioma Paternal Uncle Stomach cancer Family/Other FH: mental illness Social History Alcohol intake: former Patient Tobacco Use Status: Never used Tobacco Substance Use Type: Marijuana 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 Sexual orientation: Straight/Heterosexual Gender identity: Female Female Reproductive History Menstrual Age of Menarche: 10 control method: pills Review of Systems Const All systems reviewed & are unremarkable except as noted in HPI and below Physical Exam Vital Signs: BMI result Body Mass Index 22.3 General: Yes no CVA tenderness External Female Exam: normal external appearance and normal appearance of the urethra Speculum Exam - Vagina: normal appearance of the vagina, normal palpation, no lesions and no masses Speculum Exam - Cervix: abnormal appearance of the cervix (12:00 cervical lesion possible polyp), normal palpation, no lesions, no masses and nontender Bimanual exam- vagina & uterus: normal bimanual exam, normal palpation, uterine size normal, normal palpation, uterine shape normal, No Cervical tenderness present and non-tender Bimanual Exam- Adnexa, other: normal adnexae Back/Spine/Pelvis Back: no CVA tenderness Office Procedures [employer] Biopsy Cervical lesion biopsy: Pre-Procedure Counseling: Before beginning the procedure, I conducted comprehensive counseling with the patient. We thoroughly discussed the procedure itself, including its details, alternatives, and all associated risks. This included but not limited to the following complications such as bleeding, infection, and injury to the vagina, bladder, and vessels, as well as the potential need for transfusion with all its associated risks. Subsequently, the patient sign the consent. 08/21 co testing negative Procedure: During the procedure, the following steps were performed: A speculum was inserted, and acetic acid was applied. Cervical lesion at 12:00 identified and biopsy was obtained from the 12 o'clock position, Hemostasis was achieved using Monsel solution, and the patient tolerated the procedure well. Post-Procedure Instructions: The patient was advised to promptly contact the office or the after [facility] service or go to the emergency room if experiencing a temperature exceeding 100.4?F, abdominal pain, nausea/vomiting, or bleeding. Additionally, the patient was instructed to abstain from vaginal intercourse and bathtub use. The patient confirmed understanding of these instructions. Discharge Instructions: The patient was instructed to schedule a follow-up appointment in 2 weeks for further evaluation and management. Please note that this note was generated using a voice recognition program, and errors may have occurred during salesperson men's hats. 24474-Ndyito of Cervix Procedure code (CPT) selection complete Assessment & Plan Assessment & Plan (1) Lesion of cervix: Comment: Possible polyp Code(s): N88.9 - Noninflammatory disorder of cervix uteri, unspecified Category: Medical Plan: Discussed with the patient the finding on pelvic exam showing 12:00 lesion of the cervix, cervical biopsy recommended, patient agreed. Cervical lesion biopsy done, see procedure note. Instructions given to patient to schedule a follow-up appointment within 2 weeks, depending on the pathology results , will determine the next step and whether there is an indication for cervical polypectomy . (2) Abnormal uterine bleeding (AUB): Code(s): N93.9 - Abnormal uterine and vaginal bleeding, unspecified Category: Medical Plan: GC and chlamydia taken CBC, TSH, HCG, and pelvic ultrasound ordered. Discussed with the patient the different causes of abnormal bleeding including thyroid disorders, uterine and ovarian pathology, endometrial hyperplasia, carcinoma and other potential causes. Discussed with the patient the work up including CBC (to r/o anemia), TSH, pelvic Ultrasound, endometrial sampling to r/o endometrial pathology. All questions answered and the patient verbalized understanding. Instructed the patient to schedule an appointment for follow-up and discuss endometrial sampling via an endometrial biopsy versus hysteroscopy D&C polypectomy in case of persistent abnormal endometrium in 2 weeks. (3) Abnormal ultrasound of endometrium: Code(s): R93.5 - Abnormal findings on diagnostic imaging of other abdominal regions, i ncluding retroperitoneum Category: Medical Plan: Discussed with the patient the endometrial abnormality found on ultrasound done in 10/22 recommended repeat ultrasound if persistent abnormality will proceed with a hysteroscopy D&C polypectomy if not will schedule EMB to rule out endometrial pathology. All questions answered, the patient verbalized understanding Orders: Orders US pelvic and transvaginal Today N93.9 - Abnormal uterine and vaginal bleeding, unspecified, R93.5 - Abnormal findings on diagnostic imaging of other abdominal regions, including retroperitoneum Complete Blood Count no Diff Today N93.9 - Abnormal uterine and vaginal bleeding, unspecified TSH reflex Free T4 Today N93.9 - Abnormal uterine and vaginal bleeding, unspecified HCG Quantitative Today N93.9 - Abnormal uterine and vaginal bleeding, unspecified AMB [employer] Biopsy Today N88.9 - Noninflammatory disorder of cervix uteri, unspecified Coding Level of Care Code Est Pt Level 3 (71549) Procedure Only Diagnoses Lesion of cervix N88.9 Abnormal uterine bleeding (AUB) N93.9 Abnormal ultrasound of endometrium R93.5 CPT Codes [employer] Biopsy - CPT: 36832-Cvexxx of Cervix ([id number])
--- OUTSIDE RECORDS SUMMARY | 2025-01-10 08:06 | XMS_ITS | Encounter Summary ---
Author Organization [facility] Address [address] [place] [address] Phone Care Team Providers Care Orthotist/Prosthetist Name Role Phone Rehana Mackenzie MD Primary Care Provider [phone] Encounter Details Date Type Department Care Team (Late st Contact Info) Description 08/29/2020 Procedure [facility], [address] [place] [address] Social History Tobacco Use Types Packs/Day Years Used Date Smoking Tobacco: Never Smokeless Tobacco: Never Alcohol Use Standard Drinks/Week Comments Yes 0 (1 standard drink = 0.6 oz pur e alcohol) 3-4x week Child or Family Care Answer Date Record ed Do you have problems with on e of the following making it difficult for you to work, study, or receive health care? No 08/29/2020 Education Answer Date Recorded Are you interested in help w ith more adult education (for example, completing high school, GED, job training, learning the [place] language, technical skills, or developing parenting skills)? No 08/29/2020 Are you concerned about learning? Not on file 08/29/2020 Food Answer Date Recorded Within the past 6 months we worried whether our food would run out before we got money to buy more. Never True 08/29/2020 Within the past 6 months the food we bought just didn't last and we didn't have enough money to get more. Never True Paying for Meds Answer Date Recorded Do you have trouble paying for medicines? No 08/29/2020 Paying Utility Bills Answer Date Record ed Do you have trouble paying your heating or elect ricity bill? No 08/29/2020 Transportation Answer Date Recorded Has the lack of transportati on kept you from medical appointments or from getting medications? No 08/29/2020 Comments Unknown Sex and Gender Information Value Date Recorded Sex Assigned at Female 08/29/2020 9:02 AM EDT Legal Sex Female 6:11 PM EST Gender Identity Female 08/29/2020 9:02 AM EDT Sexual Orientation Straight 08/29/2020 9: 02 AM EDT documented as of this encounter Plan of Treatment Upcoming Encounters Date Type Department Care Team (Late st Contact Info) Description 02/07/2025 3:00 PM EDT Telemedicine [facility] [address] [place] [address] Abbey Bey, PMHNP- [address] [facility], [address] [place] [address] 03/20/2026 3:40 PM EDT Office Visit [facility] [address] [facility] [address] [place] [address] Rehana Mackenzie MD [address] [place] [address] [address] [place] [address] [email or web address] documented as of this encounter Visit Diagnoses Not on filedocumented in this encounter Additional Health Concerns Assessment Noted Time PHQ-2 Depression Total Score: 2 08/30/19 21 8:58 AM EDT documented as of this encounter Care Teams Orthotist/Prosthetist Relationship Specialty Start Date End Date Rehana Mackenzie MD [address] [facility] [address] [place] [address] PCP - General Family Medicine 08/29/20 documented as of this encounter Additional Source Comments The information contained in this document represents components of the legal health record. It is not the complete legal health record.[facility]
--- OUTSIDE RECORDS SUMMARY | 2025-01-10 08:07 | XMS_ITS | Clinical Summary ---
Author Organization [facility] Address [address] [place] [address] Care Team Providers Care Radiophone Operator Name Role Phone Unavailable Primary Care Provider [...] 78 11/09/2016 2:15 PM EDT Temperature 36.8 C (98.3 F) 11/09/2016 2:15 PM EDT Respiratory Rate 18 11/09/2016 2:15 PM EDT Oxygen Saturation 100% 11/09/2016 2:15 PM EDT Inhaled Oxygen Concentration - - Weight - - Height - - Body Mass Index - - Plan of Treatment Not on file
--- OUTSIDE RECORDS SUMMARY | 2025-01-10 08:08 | XMS_ITS | Clinical Summary ---
Author Organization [facility] it Address [address] [place] [address] Care Team Providers Care Inside Sales Coordinator Name Role Phone Jessica Cabral MD Primary Care Provider [phone] Surgical History Surgery Date Site/Laterality Comments OTHER [...] 02/27/2009 COVID-19 Vaccine (2023-2 5 season) 2024 Depression Screening 05/31/2024 Influenza Vaccine (#1) 2025 Hepatitis B Vaccines Completed 05/31/1997, 11/28/1996, [...] 5 Years) and At-Risk Patients (6 to 49 Years) Aged Out No longer eligible b ased on patient's age to complete this topic RSV Immunization Patients Under 20 months Aged Out No longer eligible b ased on patient's age to complete this topic Varicella Vaccines Aged Out No longer eligible based on patient's age to complete this topic Care Teams Inside Sales Coordinator Relationship Specialty Start Date End Date Jessica Cabral MD [address] [place] [address] PCP - General Internal Medicine 04/30/11
== END 2025-01-10 08:45 | disposition home or self-care (01) ==
LOC: HO.HWS 08:02
PROVIDERS: PCP Family Medicine; Visit Provider Obstetrics & Gynecology
DX: R93.5 Abnormal findings on diagnostic imaging of other abdominal regions, including retroperitoneum (principal); N88.9 Noninflammatory disorder of cervix uteri, unspecified; N93.9 Abnormal uterine and vaginal bleeding, unspecified
CPT/HCPCS: 57500; 99213

== ENCOUNTER 2025-01-10 08:46 | Outpatient (REF) | payer OTHER, SELFPAY ==
[2025-01-10 14:20] LABS: CT PCR NOT DETECTED (Not Detect.); NG PCR NOT DETECTED (Not Detect.)
== END 2025-01-10 08:47 | disposition home or self-care (01) ==
LOC: HO.LNP 08:46
PROVIDERS: Visit Provider Obstetrics & Gynecology
DX: Z11.3 Encounter for screening for infections with a predominantly sexual mode of transmission (principal); Z11.8 Encounter for screening for other infectious and parasitic diseases; N88.9 Noninflammatory disorder of cervix uteri, unspecified; N93.9 Abnormal uterine and vaginal bleeding, unspecified
CPT/HCPCS: 87491; 87591; 88305

== ENCOUNTER 2025-02-27 15:49 | Outpatient (REF) | payer OTHER, SELFPAY ==
--- NOTE | ~2025-02-27 | US_ITS ---
EXAMINATION: US PELVIS CLINICAL INFORMATION: N93.9 - Abnormal uterine and vaginal bleeding, unspecified COMPARISON: October 17, 2024 TECHNIQUE: Ultrasound of the pelvis is performed using both transabdominal and transvaginal transducers along with Doppler. Transvaginal imaging is performed due to inadequate visualization transabdominally. FINDINGS: Uterus: The uterus is anteverted and measures 8.2 x 2.8 x 4.3 cm. The double wall endometrial thickness is 5 mm. The uterus is smooth in contour and has normal myometrial echogenicity. No visible fibroid. Again noted is a septated cystic lesion in the lower uterine canal measuring 6x10 mm diameter. This was described on the prior study but not as well demonstrated. Adnexa: Both ovaries are visualized. There is normal color flow to the adnexa. There is no ovarian torsion. There is no pelvic ascites or fluid collection. Right ovary measures 2.2 x 1.0 x 1.7 cm. There are multiple follicles and punctate calcifications. Left ovary measures 2.0 x 0.9 x 1.4 cm. US/US pelvic and transvaginal IMPRESSION: There is a septated cystic region involving the lower uterine canal that measures 6 x 10 mm and was present in September 2024. The significance is uncertain, consider MRI of the pelvis without and with IV contrast. Electronically signed by: Vivek Coelho MD 02/27/2025 05:14 PM EDT
--- OUTSIDE RECORDS SUMMARY | 2025-02-27 16:59 | XMS_ITS | Encounter Summary ---
Author Organization [facility] Address [address] [place] [address] Phone Care Team Providers Care Labels Molder Name Role Phone Rehana Mackenzie MD Primary Care Provider [phone] Reason for Visit * Reason Onset Date Comments Triage 01/10/2025 Raised bumps on back os thighs Encounter Details Date Type Department Care Team (Late st Contact Info) Description 01/10/2025 Telephone [facility] [place] [facility] [address] [place] [address] Rehana Mackenzie MD [address] [facility] [address] [place] [address] [email or web address] Triage (Raised bumps on back os thighs) Social History Tobacco Use Types Packs/Day Years Used Date Smoking Tobacco: Never Smokeless Tobacco: Never Alcohol Use Standard Drinks/Week Comments Not Currently 0 (1 standard drink = 0.6 oz pur e alcohol) Child or Family Care Answer Date Record ed Do you have problems with on e of the following making it difficult for you to work, study, or receive health care? No 08/10/2024 Education Answer Date Recorded Are you interested in help w ith more adult education (for example, completing high school, GED, job training, learning the Cuban language, technical skills, or developing parenting skills)? No 08/10/2024 Are you concerned about learning? Not on file 08/10/2024 No 08/10/2024 Yes 08/10/2024 Food Answer Date Recorded Within the past 6 months we worried whether our food would run out before we got money to buy more. Never True 08/10/2024 Within the past 6 months the food we bought just didn't last and we didn't have enough money to get more. Never True Residential Stability Answer Date Recor ded What is your housing situation today? I have yandel [place] 08/10/2024 How many times have you move d in the past 12 months? Zero (I did not move) 08/10/2024 Paying for Meds Answer Date Recorded Do you have trouble paying for medicines? No 08/10/2024 Paying Utility Bills Answer Date Record ed Do you have trouble paying your heating or elect ricity bill? Yes 08/10/2024 Transportation Answer Date Recorded Has the lack of transportati on kept you from medical appointments or from getting medications? No 08/10/2024 Unemployment Answer Date Recorded Are you currently unemployed or working on a part-time or temporary basis, and looking for work? No 08/10/2024 Digital Access Answer Date Recorded No 08/10/2024 Yes 08/10/2024 Do you have reliable internet access at home? Ye s 08/10/2024 Do you have a device (e.g., phone, tablet, computer) with a working camera? Yes 08/10/2024 Intimate Partner Violence Answer Date R ecorded Are you denied basic needs s uch as food, clothing, or medical care? No 01/04/2025 In the past 12 months have y ou been in a relationship with a person who hurts, threatens, or tries to control you? No 01/04/2025 Are you denied basic needs s uch as food, clothing, or medical care? No 01/04/2025 In the past 12 months have y ou been in a relationship with a person who hurts, threatens, or tries to control you? No 01/04/2025 Comments Unknown Sex and Gender Information Value Date Recorded Sex Assigned at Female 08/29/2020 9:02 AM EDT Legal Sex Female 6:11 PM EST Gender Identity Female 08/29/2020 9:02 AM EDT Sexual Orientation Straight 08/29/2020 9: 02 AM EDT documented as of this encounter Progress Notes * Eugenio Savage - 01/10/2025 9:36 AM EDT Green Call Intake Call Back Number: (if not patient, name/relationship [phone] Green Symptom(s): Triage (Raised bumps on back os thighs) When did these symptoms start? 01/06 Have you ever experienced these symptoms before? NO Reason patient was not scheduled? Green Call Disposition: Patient booked for Green Symptoms per S RYOG instructions. Additional Information: Schedule appointment or offer Care Alternative Options provided in RYOG Tool Only route to nursing pool if patient declines appointment or requests nursing advice. Reason for Call = TRIAGE Comment = GREEN + symptom, NURSING ADVICE REQUEST Scripting for scheduled visits: If your symptoms worsen or change before your visit, please call us or visit a local Urgent Care or Emergency Department. Scripting for visit unable to be scheduled: We currently don???t have appointments available but can add you to our cancellation list. In the meantime, we recommend seeking care at a [facility] [place], through Virtual Ur[facility] Care on [facility] [place], or at a local urgent care center to address your symptoms. documented in this encounter Plan of Treatment Upcoming Encounters Date Type Department Care Team (Late st Contact Info) Description 03/05/2025 4:00 PM EDT Telemedicine [facility] [address] [place] [address] Abbey Bey, HNP- [address] [facility], [address] [place] [address] 03/20/2026 3:40 PM EDT Office Visit [facility] [place] [address] [place] [address] Rehana Mackenzie MD [address] [facility] [address] [place] [address] documented as of this encounter Visit Diagnoses Not on filedocumented in this encounter Additional Health Concerns Assessment Noted Time PHQ-9 Depression Total Score: 13 025 10:31 AM EDT PHQ-2 Depression Total Score: 0 01/10/20 25 3:09 PM EDT documented as of this encounter Care Teams Labels Molder Relationship Specialty Start Date End Date Rehana Mackenzie MD [address] [address] [email or web address] PCP - General Family Medicine 08/29/20 documented as of this encounter Additional Source Comments The information contained in this document represents components of the legal health record. It is not the complete legal health record.[facility]
--- OUTSIDE RECORDS SUMMARY | 2025-02-27 16:59 | XMS_ITS | Clinical Summary ---
Author Organization [facility] Address [address] [place] [address] Phone Care Team Providers Care Physical Chemistry Professor Name Role Phone Rehana Mackenzie MD Primary Care Provider [phone] Allergies Active Allergy Reactions Criticality Noted Date Comments Sulfamethoxazole-Trimethoprim Dizziness 2017 Medications levonorgestrel- ethinyl estradiol (SEASONALE) 0.15-0.03 mg per tablet Take 1 tablet by mouth daily. 4 Active buPROPion (WELLBUTRIN XL) 300 MG ER 24 hr tablet TAKE 1 TABLET(300 MG) BY MOUTH DAILY 90 tablet 1 5 Active sertraline (ZOLOFT) 50 MG tablet Take 1.5 tablets (75 mg total) by mouth daily. 135 tablet 5 Active triamcinolone acetonide 0.025 % ointmentIndicat ions:Rash and other nonspecific skin eruption Apply topically 2 (two) times a day. 30 g 5 Active lamoTRIgine (LAMICTAL) 100 MG IMMEDIATE release tablet Take 1 tablet (100 mg total) by mouth daily. 30 tablet 5 03/09/20 25 Active lamoTRIgine (LAMICTAL) 25 MG IMMEDIATE release tablet Take one tablet by mouth at bedtime (25 mg) x 14 days, if no rash and tolerating well, increase to two tablets (50 mg) by mouth at bedtime. 60 tablet 5 02/08/20 25 Discontin ued(Dose adjustmen t) Active Problems Problem Noted Date Diagnosed Date Chronic right shoulder pain 12/07/2024 Muscle tear 08/10/2024 Assessment & Plan (08/10/2024 3:09 PM EDT): Based on history and exam I do think that she likely has a small tear in the vastus medialis. This is something that can be addressed with time ibuprofen, ice and activity. I do not think that she needs to have imaging or Ortho consult at this time. If not improving then we can get her over to Ortho. Weight loss 08/10/2024 Assessment & Plan (08/10/2024 3:10 PM EDT): Significant weight loss, we will check some lab work to make sure that she is not developing anemia or other nutritional deficiencies. Alcohol abuse 09/30/2022 Assessment & Plan (09/30/2022 9:32 AM EDT): Will do some lab work including liver function testing, encouraged patient regarding her sobriety. She is made a very good choice overall for her health and is reaping the benefits. Substance use disorder 09/30/2022 Assessment & Plan (09/30/2022 9:32 AM EDT): Encourage patient to continue to work on decreasing marijuana use. ROMAN (obstructive sleep apnea) 03/03/2022 Snoring 08/30/2021 Assessment & Plan (08/30/2021 5:03 PM EDT): Although not typical habitus for ROMAN, certainly her hx sounds like ROMAN. Family history of diabetes mellitus 08/29/2020 Assessment & Plan (08/29/2020 10:24 AM EDT): Both parents had diabetes I do think that she should be getting yearly A1c. We will recheck this today. Lumbar pain on palpation 08/29/2020 Assessment & Plan (01/28/2024 2:33 PM EDT): 38-year-old female with recurrent low back pain, similar to the pain she has had before. No red flags on history and physical. She has responded well to the use of muscle relaxants and an RAMYA in the past. Rx cyclobenzaprine which worked well for her. I am re-referring her to [facility]. She explains that she missed 3 appointments a couple of years ago and was no longer able to go back, although at least 1 of these was due to a misunderstanding when she lacked insurance and thought that the appointment was canceled because they knew she lacked insurance and she is hopeful that they will re-accept her as a patient now that some time is elapsed. Discourage bedrest as this does not promote healing and leads to atrophy. Encouraged gentle activity as tolerated. Assessment & Plan (08/29/2020 10:25 AM EDT): Has never had imaging of the spine. Has failed physical therapy and conservative treatment. Will get MRI to evaluate I suspect that she has herniated disc. Cervicalgia 08/29/2020 Assessment & Plan (08/29/2020 10:25 AM EDT): Certainly needs some physical therapy/massage/Chiro. There is pretty significant muscle spasm and she can continue to take anti-inflammatory and Flexeril as needed. Polyarthralgia 08/29/2020 Major depressive disorder 08/29/2020 Assessment & Plan (08/10/2024 3:08 PM EDT): We discussed the grief is natural and expected. She should continue with therapy and good self-care. I encouraged her to reduce her marijuana use. I discussed raising medication with her however she and I agreed that we would give her a little bit longer to try to work through this without increasing her medication. Assessment & Plan (10/04/2023 2:51 PM EDT): We discussed risks and benefits of increasing the welbutrin dose. Pt is interested in trial of increase. Follow up in 2 months Assessment & Plan (08/26/2023 1:14 PM EDT): We discussed the risks and benefits of adding welbutrin at a low dose. Discussed how to take and potential side effects. Pt understands and agrees to this plan of care. Follow up in 4 weeks Assessment & Plan (07/12/2023 1:57 PM EST): Right now pt is not on any SSRI. I think getting her back on to anything will be better, she is interested in sertraline, which is a fine choice, although I have warned her that it may take 4 weeks before she has any effect at all. Reviewed risks and benefits, possible side effects and how to take. She agrees, follow up in 4 weeks. Assessment & Plan (09/30/2022 9:31 AM EDT): Has psychiatrist and therapist. Currently stable on medications. Encourage patient to continue to follow-up. Assessment & Plan (08/29/2020 10:26 AM EDT): Has fairly significant history of anxiety and depression. Is currently stable on Celexa has therapist and prescriber. Previously has been on buspirone which actually made her anxiety much worse and so she does not care to proceed with that. Encounters Date Type Department Care Team Description 02/07/2025 3:00 PM EDT Telemedicine [facility] [address] [place] [address] [place] [address] Abbey Bey, [facility]- Mixed bipolar II disorder with rapid cycling (Primary Dx); Obsessive-compulsive disorder, unspecified type; PTSD (post-traumatic stress disorder) 01/24/2025 Telephone [facility] [address] [place] [address] [address] [place] [address] Rehana Mackenzie MD 01/11/2025 4:00 PM EDT Office Visit [address] [place] [address] Isabel Trujillo CNP Rash and other nonspecific skin eruption (Primary Dx) 01/11/2025 Orders Only [address] [place] [address] Unknown, Candice, 01/10/2025 Telephone [facility] [address] [place] [address] [address] [place] [address] Rehana Mackenzie MD Triage (Raised bumps on back os thighs) 01/09/2025 3:00 PM EDT Telemedicine [facility] [address] [place] [address] Abbey Bey [facility] Mixed bipolar II disorder with rapid cycling (Primary Dx); Complex posttraumatic stress disorder; Obsessive-compulsive disorder, unspecified type; Alcohol use disorder in remission; Cannabis use disorder in remission 01/04/2025 1:30 PM EDT Telemedicine [facility] [address] [place] [address] Abbey Bey [facility] Obsessive-compulsive disorder, unspecified type (Primary Dx); Bipolar II disorder; Mixed bipolar II disorder with rapid cycling; Complex posttraumatic stress disorder 12/07/2024 3:40 PM EDT Office Visit [facility] [address] [place] [address] Gino Hall MD Biceps tendonitis on right (Primary Dx); Chronic right shoulder pain from Last 3 Months Immunizations Immunization Administration Dates Next Due COVID-19 (Pre-03/22) Moderna Vaccine, mRNA, PF 09/11/2020 HPV,quadrivalent 02/27/2009 Hepatitis B 05/31/1997,11/28/1996,10/29/1996 Meningococcal MPSV4 01/18/2004 PPD Test 05/28/2023 Td (adult),2 Lf Tetanus Toxo id, PF, Adsorbed 05/31/1998 Tdap 01/19/2017,03/08/2011 Family History Medical History Relation Comments Diabetes Father Lung cancer Father Alcohol abuse Maternal Grandfather Mesothelioma Maternal Grandfather Diabetes Mother Drug abuse Mother Stomach cancer Paternal Uncle Breast cancer Neg Hx Colon cancer Neg Hx Relation Status Comments Father Alive Maternal Grandfather Mother Paternal Uncle Sister Alive Social History Tobacco Use Types Packs/Day Years Used Date Smoking Tobacco: Never Smokeless Tobacco: Never Tobacco Cessation:Counseling Given: Not Answered Alcohol Use Standard Drinks/Week Comments Not Currently [...] high school, GED, job training, learning the Guamanian language, technical skills, or developing parenting skills)? [...] your housing situation today? I have yandel [place] 08/10/2024 How many times have you move [...] Orientation Straight 08/29/2020 9: 02 AM EDT Last Filed Vital Signs Vital Sign Reading Time Taken Comments Blood Pressure 118/52 01/11/2025 4:04 PM EDT Pulse 60 01/11/2025 4:04 PM EDT Temperature 36.6 C (97.8 F) 01/11/2025 4:04 PM EDT Respiratory Rate 18 12/17/2017 5:43 AM EDT Oxygen Saturation 98% 01/11/2025 4:04 PM EDT Inhaled Oxygen Concentration - - Weight 57.4 kg (126 lb 9.6 oz) 01/11/2025 4:04 P M EDT Height 158.8 cm (5' 2.52 ) 01/11/2025 4:04 PM ED T Body Mass Index 22.77 01/11/2025 4:04 PM EDT Plan of Treatment Upcoming Encounters Date Type Department Care Team (Late st Contact Info) Description 03/05/2025 4:00 PM EDT Telemedicine [facility] [address] [place] [address] Abbey Bey, PMHNP-BC [address] [facility] [place] [address] 03/20/2026 3:40 PM EDT Office Visit [facility] [address] [facility] [address] [place] [address] Rehana Mackenzie MD [address] [facility] [address] [place] [address] Health Maintenance Due Date Last Done Comments HIV ONE-TIME SCREENING (18-6 5 YEARS) 08/08/2003 PAP SMEAR 07/30/2023 07/29/2020 INFLUENZA VACCINE (#1) 2024 COVID-19 VACCINE (2 - 2024-2 6 season) 2025 09/11/2020 DEPRESSION SCREENING 02/07/2026 02/07/2025, 08/10/2024 Adult Td,Tdap Booster 01/19/2027 01/19/2017 , 03/08/2011, 05/31/1998 MENINGOCOCCAL VACCINES (ACWY) Aged Out 01/18/2004 No longer eligible based on patient's age to complete this topic HEPATITIS C SCREENING Completed 09/30/2022 REPEAT PHQ Completed 02/07/2025, 08/10/2024 SMOKING STATUS SCREENING (On ce After 26 Yrs) Completed 02/07/2025 HEPATITIS A VACCINES Aged Out No long er eligible based on patient's age to complete this topic HIB VACCINES Aged Out No longer eligi ble based on patient's age to complete this topic MENINGOCOCCAL VACCINES (B) Aged Out N o longer eligible based on patient's age to complete this topic PNEUMOCOCCAL VACCINES (0-49 years) Aged Out No longer eligible b ased on patient's age to complete this topic Medical Devices Not on file Procedures Procedure Name Priority Date/Time Associated Diagnosis Comments OUTSIDE LAB Routine 01/10/2025 11:46 AM EDT HEPATITIS C ANTIBODY, QUALITATIVE Routine 09/30/2022 9:30 AM EDT Need for hepatitis C screening test HM PAP SMEAR FOR RESULT ENTRY ONLY Routine 07/29/2020 from Last 3 Months or Most Recently Relevant to Health Maintenance Results * Outside Lab (01/10/2025 11:46 AM EDT) us Unknown Unknown LAB BLOOD ORDERABLES Final Re sult * Hepatitis C antibody, qualitative (09/30/2022 9:30 AM EDT) HCV NON-REACTIV E NON-REACTI VE [facility] Blood 09/30/2022 9:30 AM EDT 09/30/2022 9:32 AM EDT us Rehana Mackenzie MD LAB BLOOD ORDERABLES Final Resul t [facility] [address] [place] [address] * PAP SMEAR FOR RESULT ENTRY ONLY (07/29/2020) Pap smear normal Comment:norm us Historical Provider HEALTH MAINTENANCE Final Result from Last 3 Months or Most Recently Relevant to Health Maintenance Insurance [employer] [address] [place] [address] [employer] [facility] [employer] DIRECT [employer] DIRECT [employer] DIRECT [employer] DIRECT [employer] DIRECT [employer] [place] [address] [address] CONNECTORCARE DIRECT [facility] DIRECT Care Teams Physical Chemistry Professor Relationship Specialty Start Date End Date Rehana Mackenzie MD [address] [address] [email or web address] PCP - General Family Medicine 08/29/20 Additional Source Comments The information contained in this document represents components of the legal health record. It is not the complete legal health record.[facility]
--- OUTSIDE RECORDS SUMMARY | 2025-02-27 16:59 | XMS_ITS | Encounter Summary ---
Author Organization [facility] Address [address] [place] [phone] Phone Care Team Providers Care Car Cleaner Name Role Phone Rehana Mackenzie MD Primary Care Provider Encounter Details Date Type Department Care Team (Late st Contact Info) Description 08/29/2020 Procedure Pass [facility], [address] [place] [address] Social History Tobacco Use Types Packs/Day Years [...] high school, GED, job training, learning the Burkinan language, technical skills, or developing parenting skills)? [...] Info) Description 03/05/2025 4:00 PM EDT Telemedicine [facility] [address] [place] [address] Abbey Bey, PMHNP- [address] [facility], [address] [place] [address] 03/20/2026 3:40 PM EDT Office Visit [facility] [address] [facility] [address] [place] [address] Rehana Mackenzie MD [address] [place] [address] [address] [place] [address] [email or web address] documented as of this encounter Visit Diagnoses Not on filedocumented in this encounter Additional Health Concerns Assessment Noted Time PHQ-2 Depression Total Score: 2 08/30/19 21 8:58 AM EDT documented as of this encounter Care Teams Car Cleaner Relationship Specialty Start Date End Date Rehana Mackenzie MD [address] [facility] [address] [place] [address] PCP - General Family Medicine 08/29/20 documented as of this encounter Additional Source Comments The information contained in this document represents components of the legal health record. It is not the complete legal health record.[facility]
--- OUTSIDE RECORDS SUMMARY | 2025-02-27 16:59 | XMS_ITS | Encounter Summary ---
Author Organization [facility] Address [address] [facility] [address] [place] [address] Phone Care Team Providers Care Lawn Care Technician Name Role Phone Rehana Mackenzie MD Primary Care Provider Encounter Details Date Type Department Care Team (Late st Contact Info) Description 01/24/2025 Telephone [facility] [place] [facility] [address] [facility] [address] [place] [address] Rehana Mackenzie MD [address] [facility] [address] [place] [address] [email or web address] Social History Tobacco Use Types Packs/Day Years [...] high school, GED, job training, learning the Tunisian language, technical skills, or developing parenting skills)? [...] encounter Progress Notes * Eugenio Savage - 01/24/2025 8:53 AM EDT 24-48 Hour No-Show Notice If caller not the patient: Name: Relationship: Cancel Appt Visit Type: SICK VISIT Cancelation Reason: Personal Reasons Cancelation Detail: work Was Appt Reschedule: Yes Why Reschedule was not performed (W/Detail) Awareness: I have reiterated our late cancellation policy to the caller. Agent Action: > Reason for Call: NO SHOW > Comment: Enter Cancel Appt date > Route: Route to FD if the No-Show is a future date. > Route: OXBOW SDV and Sick Visit No-Show, route to RN for rescheduling. Do not Call Center: Ensure the appt has been cancel from the future tab > Reiterate Scripting: Provide our late cancellation policy to the caller Required Scripting for Existing Patients: Thank you for notifying us about the cancellation. We will inform the provider. As a reminder, our policy requires at least 24 hours' notice for cancellations, as providers reserve time for your appointment, and short notice often makes it difficult to reschedule. You can cancel appointments anytime through your [facility] [place]. We appreciate your understanding. Required Scripting for New Patients: Thank you for notifying us about the cancellation. We will inform the provider. Please be aware of our 48-hour cancellation policy for new patients. If you need to cancel or reschedule, we ask for at least 48 hours' notice. If you miss an appointment or cancel without sufficient notice, it will be marked as a No-Show appointment. We allow for two unforeseen circumstances under this policy. This policy ensures that our providers can manage their schedules effectively. Additionally, you can cancel appointments anytime through your Patient [place]. documented in this encounter Plan of Treatment Upcoming Encounters Date Type Department Care Team (Late st Contact Info) Description 03/05/2025 4:00 PM EDT Telemedicine [facility] [address] [place] [address] [place] [address] Abbey Bey, HNP- [address] [facility], [address] [place] [address] 03/20/2026 3:40 PM EDT Office Visit [facility] [place] [facility] [address] [facility] [address] [place] [address] Rehana Mackenzie MD [address] [address] [email or web address] documented as of this encounter Visit Diagnoses Not on filedocumented in this encounter Additional Health Concerns Assessment Noted Time PHQ-9 Depression Total Score: 13 025 10:31 AM EDT PHQ-2 Depression Total Score: 0 01/10/20 25 3:09 PM EDT documented as of this encounter Care Teams Lawn Care Technician Relationship Specialty Start Date End Date Rehana Mackenzie MD [address] [address] [email or web address] PCP - General Family Medicine 08/29/20 documented as of this encounter Additional Source Comments The information contained in this document represents components of the legal health record. It is not the complete legal health record.[facility]
--- OUTSIDE RECORDS SUMMARY | 2025-02-27 16:59 | XMS_ITS | Clinical Summary ---
Author Organization [facility] it Address [address] [place] [address] Care Team Providers Care Healthcare Consultant Name Role Phone Jessica Cabral MD Primary Care Provider [phone] Surgical History Surgery Date Site/Laterality Comments OTHER [...] Vaccines (2 - 3-dose series) 03/27/2009 02/27/2009 Depression Screening 05/31/2024 COVID-19 Vaccine (2023-2 5 season) 2025 Influenza Vaccine (#1) 2025 RSV Immunization Adult Patients (1 - 1-dose 75+ series) 2060 Hepatitis B Vaccines Completed 05/31/1997, 11/28/1996, 10/29/1996 [...] age to complete this topic Care Teams Healthcare Consultant Relationship Specialty Start Date End Date Jessica Cabral MD [address] [place] [address] PCP - General Internal Medicine 04/30/11
--- OUTSIDE RECORDS SUMMARY | 2025-02-27 16:59 | XMS_ITS | Encounter Summary ---
Author Organization [facility] Address [address] [facility] [address] [place] [phone] Phone Care Team Providers Care Dry Wall Nailer Name Role Phone Rebecca Serra MD Primary Care Provid er Rehana Mackenzie MD Primary Care Provider [phone] Encounter Details Date Type Department Care Team (Late st Contact Info) Description 12/17/2017 Procedure Pass [facility], Ct Scan - [address] [address] Social History Tobacco Use Types Packs/Day Years Used Date Smoking Tobacco: Never Smokeless Tobacco: Never Alcohol Use Standard Drinks/Week Comments Yes 0 (1 standard drink = 0.6 oz pur e alcohol) 3-4x week Comments Unknown Sex and Gender Information Value Date Recorded Sex Assigned at Female 08/29/2020 9:02 AM EDT Legal Sex Female 6:11 PM EST Gender Identity Female 08/29/2020 9:02 AM EDT Sexual Orientation Straight 08/29/2020 9: 02 AM EDT documented as of this encounter Plan of Treatment Upcoming Encounters Date Type Department Care Team (Late st Contact Info) Description 03/05/2025 4:00 PM EDT Telemedicine [facility] [address] [place] [address] Abbey Bey, PMHNP- [address] [facility], [address] [place] [address] 03/20/2026 3:40 PM EDT Office Visit [facility] [address] [facility] [address] [place] [address] Rehana Mackenzie MD [address] [facility] [address] [place] [address] documented as of this encounter Visit Diagnoses Not on filedocumented in this encounter Care Teams Dry Wall Nailer Relationship Specialty Start Date End Date Rebecca Serra MD [address] [place] [address] PCP - General Internal Medicine 12/16/17 08/28/20 Rehana Mackenzie MD [address] [facility] [place] [address] PCP - General Family Medicine 08/29/20 documented as of this encounter Additional Source Comments The information contained in this document represents components of the legal health record. It is not the complete legal health record.[facility]
--- OUTSIDE RECORDS SUMMARY | 2025-02-27 16:59 | XMS_ITS | Clinical Summary ---
Author Organization [facility] Address [address] [place] [address] Care Team Providers Care Profiler Hand Name Role Phone Unavailable Primary Care Provider [...]
--- OUTSIDE RECORDS SUMMARY | 2025-02-27 16:59 | XMS_ITS | Clinical Summary ---
Author Organization [employer] Address [address] [facility] [address] [place] [address] Care Team Providers Care Water Fitness Instructor Name Role Phone Unavailable Primary Care Provider Unavailabl e Allergies Active Allergy Reactions Criticality Noted Date Comments Sulfamethoxazole-Trimethoprim Hives 2024 Medications acetaminophen (Tylenol 8 Hour) 650 MG ER tablet Take 1 tablet (650 mg) by mouth every 8 (eight) hours if needed for mild pain. Do not crush, chew, or split. 30 tablet 02/15/2025 Active ibuprofen 600 MG tablet Take 1 tablet (600 mg) by mouth 3 times daily. 15 tablet 02/15/2025 Active amoxicillin (Amoxil) 500 MG capsule Take 1 capsule (500 mg) by mouth every 8 (eight) hours for 7 days. 21 capsule 02/15/2025 02/23/20 25 Active Problems Problem Noted Date Diagnosed Date Severe dental caries 02/15/2025 Encounters Date Type Department Care Team Description 02/15/2025 1:00 PM EDT Office Visit [facility] [address] [place] [address] Leo Mclaughlin DDS Severe dental caries (Primary Dx) from Last 3 Months Social History Tobacco Use Types Packs/Day Years Used Date Smoking Tobacco: Never Passive Smoke Exposure: Never Smokeless Tobacco: Never Tobacco Cessation:Counseling Given: No Alcohol Use Standard Drinks/Week Comments Never 0 (1 standard drink = 0.6 oz pur e alcohol) Comments Unknown Sex and Gender Information Value Date Recorded Sex Assigned at Female 02/15/2025 9:41 AM EDT Legal Sex Female 9:35 AM EDT Gender Identity Female 02/15/2025 9:41 AM EDT Sexual Orientation Choose not to disclose 2024 9:41 AM EDT Last Filed Vital Signs Vital Sign Reading Time Taken Comments Blood Pressure 112/66 02/15/2025 1:15 PM EDT Pulse 66 02/15/2025 1:15 PM EDT Temperature - - Respiratory Rate - - Oxygen Saturation - - Inhaled Oxygen Concentration - - Weight - - Height - - Body Mass Index - - Plan of Treatment Upcoming Encounters Date Type Department Care Team (Late st Contact Info) Description 03/12/2025 3:00 PM EDT Office Visit [facility] [address] [place] [address] Power-MosherPaulEbony, DDS [address] [place] [address] Health Maintenance Due Date Last Done Comments Dental Oral Exam 1985 Dental Prophylaxis 1985 Dental X-Ray: Bitewings 1985 Dental X-Ray: Full Mouth 1985 Depression Screening 1985 HIV Screening 1985 SDOH Screening 1985 Disability Screening 1985 Alcohol/Substance Use Screening 1997 Family Planning (PISQ) 2000 Hepatitis C Screening 08/08/2003 Pap Smear 2006 HPV Vaccines (2 - 3-dose series) 03/27/2009 02/27/2009 Cervical Cancer Screening 08/08/2015 HPV/Cotest 08/08/2015 COVID-19 Vaccine (2 - 2024-2 6 season) 2025 09/11/2020 Influenza Vaccine (#1) 2025 Tobacco Screening 02/15/2026 02/15/2025 DTaP/Tdap/Td Vaccines (4 - T d or Tdap) 01/19/2027 01/19/2017, 03/08/2011, 05/31/1998 Zoster Vaccines (1 of 2) 08/08/2035 RSV Patients and Patients Aged 60 years or older (1 - 1-dose 75+ series) 2060 Hepatitis B Vaccines Completed 05/31/1997, 11/28/1996, 10/29/1996 Meningococcal Vaccine Aged Out 01/18/2004 No siddharth rick eligible based on patient's age to complete [...] 5 Years) and At-Risk Patients (6 to 49) Years Aged Out No longer eligible b ased on patient's age to complete this topic RSV under 20 months Aged Out No longe r eligible based on patient's age to complete this topic Rotavirus Vaccines Aged Out No longer eligible based on patient's age to complete this topic Procedures Procedure Name Priority Date/Time Associated Diagnosis Comments CASE PRESENTATION, DETAILED AND EXTENSIVE TREATMENT PLANNING Routine 02/15/2025 1:00 PM EDT INTRAORAL - PERIAPICAL FIRST RADIOGRAPHIC IMAGE Routine 02/15/2025 1:00 PM EDT LIMITED ORAL EVALUATION - PROBLEM FOCUSED Routine 02/15/2025 1:00 PM EDT from Last 3 Months Insurance DENTAL - HSN FULL (MEDICAID)
== END 2025-02-27 15:50 | disposition home or self-care (01) ==
LOC: HO.US 15:49
PROVIDERS: PCP Family Medicine; Visit Provider Obstetrics & Gynecology
DX: N93.9 Abnormal uterine and vaginal bleeding, unspecified (principal); R93.5 Abnormal findings on diagnostic imaging of other abdominal regions, including retroperitoneum
CPT/HCPCS: 76830; 76856

== ENCOUNTER → 2025-02-27 15:51 | Outpatient (BNV) | payer OTHER, SELFPAY | PROVIDERS: PCP Family Medicine; Visit Provider Radiology Diagnostic Radiology | DX: N93.9 Abnormal uterine and vaginal bleeding, unspecified (principal) | CPT/HCPCS: 76830; 76856 ==

== ENCOUNTER 2025-03-06 08:38 | Outpatient (AMB) | payer OTHER, SELFPAY ==
--- OUTSIDE RECORDS SUMMARY | 2025-03-05 16:00 | XMS_ITS | Encounter Summary ---
Author Organization [facility] Address [address] [place] [address] [address] [place] [address] Phone Care Team Providers Care Leak Patcher Name Role Phone Rehana Mackenzie MD Primary Care Provider [phone] Encounter Details Date Type Department Care Team (Late st Contact Info) Description 03/05/2025 4:00 PM EDT Telemedicine [facility] [address] [place] [address] Abbey Bey, [facility]- [address] [facility], [address] [place] [address] [email or web address] Mixed bipolar II disorder with rapid cycling [...] high school, GED, job training, learning the [place] language, technical skills, or developing parenting skills)? [...] such as poetry reading and joining a technical document writer's workshop, though she sometimes feels less [...] mg daily - Advise her to contact [facility] for a long-term psychiatric provider [...] for her complex conditions. She willcontact [facility], CLOTHING SALES ASSISTANT, and [employer] -Patient was given the [...] Info) Description 04/02/2025 4:00 PM EST Telemedicine [facility] [address] [place] [address] Abbey Bey PMHNP-BC [address] [facility], [address] [place] [address] 03/20/2026 3:40 PM EDT Office Visit [facility] [address] [facility] [address] [place] [address] Rehana Mackenzie MD [address] [facility] [address] [place] [address] [email or web address] documented as of this encounter Visit Diagnoses [...] documented as of this encounter Care Teams Leak Patcher Relationship Specialty Start Date End Date Rehana Mackenzie MD [address] [address] [email or web address] PCP - General Family Medicine 08/29/20 documented as of this encounter Additional Source Comments The information contained in this document represents components of the legal health record. It is not the complete legal health record.[facility]
--- NOTE | 2025-03-06 08:50 | MHC.OFFVIS ---
Vital Signs 03/06/25 08:57 Height 5 ft 3 in Weight 126 lb BMI 22.3 BP 98/66 Intake Visit Reasons: us follow up/emb ?/possible preop ok per jocelin [employer] Driver Required: No Information Interpreted: non-clinical & clinical Order Entry Technician: Order Entry Technician Present Allergies sulfamethoxazole (From BACTRIM) Allergy (Intermediate, Verified 03/06/25 08:59) DIARRHEA Medication List - Last Reconciled 03/06/25 by Ebony Villarreal LPN bupropion HCl XL 300 mg PO DAILY lamotrigine (Lamictal) 200 mg PO DAILY levonorgestrel-ethinyl estrad 0.15 mg-30 mcg (91) (Jolessa) 1 tab PO DAILY sertraline 50 mg PO DAILY Is last menstrual period known: Yes Last menstrual period: 03/28/20 Post menopausal: No Patient : No Do you need a note to return to daycare/school/sports/work: Yes (for surgery on wednesday) HPI Comments Details: Presenting for follow-up Cervical biopsy pathology showed the following: Polypoid endocervical mucosa with acute cervicitis and squamous metaplasia; negative for squamous intraepithelial lesion. Last co testing in 08/21 was negative Repeat pelvic ultrasound done in 01/22 showed the following: Uterus: The uterus is anteverted and measures 8.2 x 2.8 x 4.3 cm. The double wall endometrial thickness is 5 mm. The uterus is smooth in contour and has normal myometrial echogenicity. No visible fibroid. Again noted is a septated cystic lesion in the lower uterine canal measuring 6x10 mm diameter. This was described on the prior study but not as well demonstrated. Adnexa: Both ovaries are visualized. There is normal color flow to the adnexa. There is no ovarian torsion. There is no pelvic ascites or fluid collection. Right ovary measures 2.2 x 1.0 x 1.7 cm. There are multiple follicles and punctate calcifications. Left ovary measures 2.0 x 0.9 x 1.4 cm. 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 Sexual orientation: Straight/Heterosexual Gender identity: Female Female Reproductive History Menstrual Age of Menarche: 10 Date of last menstrual period: 03/28/20 Total pregnancies: 2 Full term: 2 Review of Systems Card Reports as per HPI and Reports no additional complaints Resp Reports as per HPI and Reports no additional complaints GI Reports as per HPI and Reports no additional complaints Reports as per HPI Physical Exam Vital Signs: Last Vital Signs BP 98/66 03/06/25 08:57 BMI result Body Mass Index 22.3 Const General: cooperative, healthy appearing and comfortable Resp Effort & Inspection: normal respiratory effort Auscultation: clear to auscultation bilaterally Percussion: percussion normal Cardio Palpation: normal PMI Rate: regular rate Rhythm: regular rhythm Heart sounds: no murmurs and no rubs Peripheral pulses: Peripheral pulses 2+ throughout GI Inspection: Yes normal to inspection Palpation (GI): Soft to palpation, nontender, no guarding, not rigid and No hepatosplenomegaly present Percussion: Yes normal to percussion Auscultation: normal bowel sounds Rectal Exam - Female: deferred Assessment & Plan Assessment & Plan (1) Abnormal ultrasound of endometrium: Comment: aub Code(s): R93.5 - Abnormal findings on diagnostic imaging of other abdominal regions, including retroperitoneum Category: Medical Plan: Discussed with the patient the finding on ultrasound, recommended hysteroscopy D&C possible polypectomy/myomectomy. Discussed with the patient the procedure , all benefits and risks including but not limited to inability to complete the procedure , insufficient endometrial tissue for a complete evaluation of the endometrial cavity , bleeding, infection, possible need for blood transfusion with all its risk ( HIV,syphilis, Hepatitis, anaphylaxis shock, others..), injury to bladder, rectum, possible need for laparoscopy/laparotomy or hysterectomy. The patient verbalized understanding and signed the consent. Instructions given the patient to stay NPO after midnight the day prior to the procedure and to take only the specific medication (s) discussed the morning of the surgical procedure and to schedule a 2 week postoperative appointment (2) Lesion of cervix: Comment: Possible polyp Code(s): N88.9 - Noninflammatory disorder of cervix uteri, unspecified Category: Medical Plan: Discussed with the patient the results of the pathology, the patient with a assured. All questions answered, the patient verbalized understanding Coding Level of Care Code Est Pt Level 3 (40484) Diagnoses Abnormal ultrasound of endometrium R93.5 Lesion of cervix N88.9
[2025-03-06 08:57] VITALS: BP 98/66; BMI 22.3
--- OUTSIDE RECORDS SUMMARY | 2025-03-06 09:15 | XMS_ITS | Clinical Summary ---
Author Organization [facility] [employer] Address [address] [place] [address] Care Team Providers Care Blast Furnace Checker Name Role Phone Unavailable Primary Care Provider [...] Description 02/15/2025 1:00 PM EDT Office Visit [facility] [address] [place] [address] Leo Mclaughlin DDS Severe dental caries (Primary [...] Description 03/12/2025 3:00 PM EDT Office Visit [facility] [address] [place] [address] Power-MosherPaulEbony, DDS [address] [place] [address] Health Maintenance Due Date Last Done Comments [...]
--- OUTSIDE RECORDS SUMMARY | 2025-03-06 09:15 | XMS_ITS | Clinical Summary ---
Author Organization [facility] Address [address] [place] [address] Care Team Providers Care Driver Messenger Name Role Phone Jessica Cabral MD Primary Care Provider [phone] Surgical History Surgery Date Site/Laterality Comments OTHER [...] age to complete this topic Care Teams Driver Messenger Relationship Specialty Start Date End Date Jessica Cabral MD [address] [place] [address] PCP - General Internal Medicine 04/30/11
--- OUTSIDE RECORDS SUMMARY | 2025-03-06 09:15 | XMS_ITS | Clinical Summary ---
Author Organization [facility] Address [address] [place] [address] Phone Care Team Providers Care Smoking Pipe Coater Name Role Phone Rehana Mackenzie MD Primary Care Provider [phone] Allergies Active Allergy Reactions Criticality Noted Date Comments Sulfamethoxazole-Trimethoprim Dizziness 2017 Medications levonorgestrel- ethinyl estradiol (SEASONALE) 0.15-0.03 mg per tablet Take 1 tablet by mouth daily. 4 Active sertraline (ZOLOFT) 50 MG tablet Take 1.5 tablets (75 mg total) by mouth daily. 135 tablet 5 Active triamcinolone acetonide 0.025 % ointmentIndicat ions:Rash and other nonspecific skin eruption Apply topically 2 (two) times a day. 30 g 5 Active lamoTRIgine (LAMICTAL) 200 MG IMMEDIATE release tablet Take 1 tablet (200 mg total) by mouth daily. 30 tablet 5 04/04/20 25 Active buPROPion (WELLBUTRIN XL) 150 MG ER 24 hr tablet Take 1 tablet (150 mg total) by mouth daily. 30 tablet 5 04/04/20 25 Active buPROPion (WELLBUTRIN XL) 300 MG ER 24 hr tablet TAKE 1 TABLET(300 MG) BY MOUTH DAILY 90 tablet 1 5 03/05/20 25 Discontin ued(Dose adjustmen t) lamoTRIgine (LAMICTAL) 25 MG IMMEDIATE release tablet Take one tablet by mouth at bedtime (25 mg) x 14 days, if no rash and tolerating well, increase to two tablets (50 mg) by mouth at bedtime. 60 tablet 5 02/08/20 25 Discontin ued(Dose adjustmen t) lamoTRIgine (LAMICTAL) 100 MG IMMEDIATE release tablet Take 1 tablet (100 mg total) by mouth daily. 30 tablet 5 03/05/20 25 Discontin ued(Dose adjustmen t) Active Problems [...] for her. I am re-referring her to [facility]. She explains that she missed 3 appointments [...] Encounters Date Type Department Care Team Description 03/05/2025 4:00 PM EDT Telemedicine [address] [place] [address] Abbey Bey, [facility] Mixed bipolar II disorder with rapid cycling (Primary Dx); Obsessive-compulsive disorder, unspecified type; Posttraumatic stress disorder; Alcohol use disorder in remission; Cannabis use disorder in remission 02/28/2025 Orders Only [facility] [address] [place] [address] Provider, MD Sathish 02/07/2025 3:00 PM EDT Telemedicine [address] [place] [address] Abbey Bey [facility] Mixed bipolar II disorder with rapid cycling (Primary Dx); Obsessive-compulsive disorder, unspecified type; PTSD (post-traumatic stress disorder) 01/24/2025 Telephone [facility] [address] [place] [address] Rehana Mackenzie MD 01/11/2025 4:00 PM EDT Office Visit [address] [place] [address] Isabel Trujillo CNP Rash and other nonspecific skin eruption (Primary Dx) 01/11/2025 Orders Only [address] [place] [address] Unknown, Unknown, 01/10/2025 Telephone [facility] [address] [place] [address] Rehana Mackenzie MD Triage (Raised bumps on back os thighs) 01/09/2025 3:00 PM EDT Telemedicine [address] [place] [address] Abbey Bey [facility] Mixed bipolar II disorder with rapid cycling (Primary Dx); Complex posttraumatic stress disorder; Obsessive-compulsive disorder, unspecified type; Alcohol use disorder in remission; Cannabis use disorder in remission 01/04/2025 1:30 PM EDT Telemedicine [facility] [address] [place] [address] Abbey Bey [facility] Obsessive-compulsive disorder, unspecified type (Primary Dx); Bipolar II disorder; Mixed bipolar II disorder with rapid cycling; Complex posttraumatic stress disorder 12/07/2024 3:40 PM EDT Office Visit [facility] [address] [place] [address] Gino Hall MD Biceps tendonitis on right [...] high school, GED, job training, learning the Guatemalan language, technical skills, or developing parenting skills)? [...] is your housing situation today? I have [place] 08/10/2024 How many times have you [...] Info) Description 04/02/2025 4:00 PM EST Telemedicine [facility] [address] [place] [address] Abbey Bey, PMHNP- [address] [facility], [address] [place] [address] [email or web address] 03/20/2026 3:40 PM EDT Office Visit [facility] [address] [facility] [address] [place] [address] Rehana Mackenzie MD [address] [facility] [address] [place] [address] [email or web address] Health Maintenance Due Date Last Done Comments HIV ONE-TIME SCREENING (18-6 5 YEARS) 08/08/2003 PAP SMEAR 07/30/2023 07/29/2020 INFLUENZA VACCINE (#1) 2024 COVID-19 VACCINE (2 - 2024-2 6 season) 2025 09/11/2020 DEPRESSION SCREENING 03/05/2026 03/05/2025, 03/05/2025 Adult Td,Tdap Booster 01/19/2027 01/19/2017 , 03/08/2011, 05/31/1998 MENINGOCOCCAL VACCINES (ACWY) Aged Out 01/18/2004 No longer eligible based on patient's age to complete this topic HEPATITIS C SCREENING Completed 09/30/2022 SMOKING STATUS SCREENING (On ce After 26 Yrs) Completed 03/05/2025 HEPATITIS A VACCINES Aged Out No long [...] Name Priority Date/Time Associated Diagnosis Comments OUTSIDE IMAGING Routine 02/27/2025 9:28 AM EDT OUTSIDE LAB Routine 01/10/2025 11:46 AM EDT HEPATITIS C ANTIBODY, QUALITATIVE Routine 09/30/2022 9:30 AM EDT Need for hepatitis C screening test HM PAP SMEAR FOR RESULT ENTRY ONLY Routine 07/29/2020 from Last 3 Months or Most Recently Relevant to Health Maintenance Results * Outside Imaging Report Only (02/27/2025 9:28 AM EDT) us Historical Provider IMG XR CHEST Final Res ult * Outside Lab (01/10/2025 11:46 AM EDT) us Unknown Unknown LAB BLOOD ORDERABLES Final Re sult * Hepatitis C antibody, qualitative (09/30/2022 9:30 AM EDT) HCV NON-REACTIV E NON-REACTI VE [facility] Blood 09/30/2022 9:30 AM EDT 09/30/2022 9:32 AM EDT Rehana Mackenzie MD LAB BLOOD ORDERABLES Final Resul t Performing Organization Address City/State/[facility] Co de Phone Number [address] [address] * HM PAP SMEAR FOR RESULT ENTRY ONLY (07/29/2020) HM Pap smear normal Comment:norm Historical Provider HEALTH MAINTENANCE Final Result from Last 3 Months or Most Recently Relevant to Health Maintenance Insurance [facility] Targeter App [facility] CONNECTORCARE DIRECT CONNECTORCARE DIRECT CONNECTORCARE DIRECT Targeter App [facility] CONNECTORCARE DIRECT CONNECTORCARE DIRECT CONNECTORCARE DIRECT FTS PUBLIC PLANS CONNECTORCARE DIRECT CONNECTORCARE DIRECT CONNECTORCARE DIRECT Care Teams Smoking Pipe Coater Relationship Specialty Start Date End Date Rehana Mackenzie MD NPI: [id number] [place] [id number] [email or web address] PCP - General Family Medicine 08/29/20 Additional Source Comments The information contained in this document represents components of the legal health record. It is not the complete legal health record.[facility]
--- OUTSIDE RECORDS SUMMARY | 2025-03-06 09:15 | XMS_ITS | Encounter Summary ---
Author Organization [facility] Address [address] [place] [address] Phone Care Team Providers Care Client Support Manager Name Role Phone Rehana Mackenzie MD Primary Care Provider [phone] Encounter Details Date Type Department Care Team (Late st Contact Info) Description 08/29/2020 Procedure Pass [facility], [address] [place] [address] Social History Tobacco Use Types Packs/Day Years [...] high school, GED, job training, learning the Turkish language, technical skills, or developing parenting skills)? [...] Info) Description 04/02/2025 4:00 PM EST Telemedicine [facility] [address] [place] [address] Abbey Bey, PMHNP- [address] [facility], [facility] [address] [place] [address] 03/20/2026 3:40 PM EDT Office Visit [facility] [address] [facility] [address] [place] [address] Rehana Mackenzie MD [address] [place] [address] [address] [place] [address] documented as of this encounter Visit Diagnoses Not on filedocumented in this encounter Additional Health Concerns Assessment Noted Time PHQ-2 Depression Total Score: 2 08/30/19 21 8:58 AM EDT documented as of this encounter Care Teams Client Support Manager Relationship Specialty Start Date End Date Rehana Mackenzie MD [address] [facility]. [address] [place] [address] PCP - General Family Medicine 08/29/20 documented as of this encounter Additional Source Comments The information contained in this document represents components of the legal health record. It is not the complete legal health record.[facility]
--- OUTSIDE RECORDS SUMMARY | 2025-03-06 09:15 | XMS_ITS | Encounter Summary ---
Author Organization [facility] Address [address] [facility] [address] [place] [address] Phone Care Team Providers Care De Icer Installer Name Role Phone Rehana Mackenzie MD Primary Care Provider [phone] Encounter Details Date Type Department Care Team (Late st Contact Info) Description 02/28/2025 Orders Only [facility] Family Medicine [address] [place] [address] ProviderSathish MD [address] [place], [place] [id number] Social History Tobacco Use Types Packs/Day Years [...] high school, GED, job training, learning the Mexican language, technical skills, or developing parenting skills)? [...] Info) Description 04/02/2025 4:00 PM EST Telemedicine [facility] [address] [place] [address] Abbey Bey, PMP-[address] [address] 03/20/2026 3:40 PM EDT Office Visit [facility] [place] [facility] [address] [facility] [address] [place] [address] Rehana Mackenzie MD [address] [facility]. [address] [place] [address] [email or web address] documented as of this encounter Procedures Procedure Name Priority Date/Time Associated Diagnosis Comments OUTSIDE IMAGING Routine 02/27/2025 9:28 AM EDT documented in this encounter Results * Outside Imaging Report Only (02/27/2025 9:28 AM EDT) us Historical Provider IMCatalina XR CHEST Final Res ult documented in this encounter Visit Diagnoses Not on filedocumented in this encounter Additional Health Concerns Assessment Noted Time PHQ-9 Depression Total Score: 13 025 10:31 AM EDT PHQ-2 Depression Total Score: 0 02/08/20 25 3:13 PM EDT documented as of this encounter Care Teams De Icer Installer Relationship Specialty Start Date End Date Rehana Mackenzie MD [address] [facility] [address] [place] [address] PCP - General Family Medicine 08/29/20 documented as of this encounter Additional Source Comments The information contained in this document represents components of the legal health record. It is not the complete legal health record.[facility]
--- OUTSIDE RECORDS SUMMARY | 2025-03-06 09:15 | XMS_ITS | Encounter Summary ---
Author Organization [facility] Address [address] [facility] [address] [place] [address] Phone Care Team Providers Care Cat Scan Technologist Name Role Phone Rebecca Serra MD Primary Care Provid er Rehana Mackenzie MD Primary Care Provider [phone] Encounter Details Date Type Department Care Team (Late st Contact Info) Description 12/17/2017 Procedure Pass [facility], Ct Scan - [address] [address] Social History Tobacco Use Types Packs/Day Years [...] Info) Description 04/02/2025 4:00 PM EST Telemedicine [facility] [address] [place] [address] Abbey Bey, REYNALDOP- [address] [facility], [address] [place] [address] 03/20/2026 3:40 PM EDT Office Visit [facility] [place] [facility] [address] [facility] [address] [place] [address] Rehana Mackenzie MD [address] [facility] [address] [place] [address] [email or web address] documented as of this encounter Visit Diagnoses Not on filedocumented in this encounter Care Teams Cat Scan Technologist Relationship Specialty Start Date End Date Rebecca Serra MD [address] [place] [address] PCP - General Internal Medicine 12/16/17 08/28/20 Rehana Mackenzie MD [address] [facility] [address] [place] [address] [email or web address] PCP - General Family Medicine 08/29/20 documented as of this encounter Additional Source Comments The information contained in this document represents components of the legal health record. It is not the complete legal health record.[facility]
--- OUTSIDE RECORDS SUMMARY | 2025-03-06 09:15 | XMS_ITS | Encounter Summary ---
Author Organization [facility] Address [address] [facility] [address] [place] [address] Phone Care Team Providers Care Roll Bucker Name Role Phone Rehana Mackenzie MD Primary Care Provider Reason for Visit * Reason Onset Date Comments Triage 01/10/2025 Raised bumps on back os thighs Encounter Details Date Type Department Care Team (Late st Contact Info) Description 01/10/2025 Telephone Advice [facility] [place] Primary [facility] [address] [facility] [address] [place] [address] Rehana Mackenzie MD [address] [facility] [address] [place] [address] [email or web address] Triage (Raised bumps on back os thighs) [...] high school, GED, job training, learning the [place] Zealander language, technical skills, or developing parenting skills)? [...] Call Back Number: (if not patient, name/relationship [phone] Green Symptom(s): Triage (Raised bumps on back [...] meantime, we recommend seeking care at a [facility] [place], through [facility] [place], or at a local urgent care center to address your symptoms. documented in this encounter Plan of Treatment Upcoming Encounters Date Type Department Care Team (Late st Contact Info) Description 04/02/2025 4:00 PM EST Telemedicine [facility] [address] [place] [address] Abbey Bey, PMHNP- [address] [facility], [address] [place] [address] 03/20/2026 3:40 PM EDT Office Visit [facility] [place] Primary [facility] [address] [facility] [address] [place] [address] Rehana Mackenzie MD [address] [facility] [address] [place] [address] documented as of this encounter Visit Diagnoses Not on filedocumented in this encounter Additional Health Concerns Assessment Noted Time PHQ-9 Depression Total Score: 13 025 10:31 AM EDT PHQ-2 Depression Total Score: 0 01/10/20 25 3:09 PM EDT documented as of this encounter Care Teams Roll Bucker Relationship Specialty Start Date End Date Rehana Mackenzie MD [address] [address] [email or web address] PCP - General Family Medicine 08/29/20 documented as of this encounter Additional Source Comments The information contained in this document represents components of the legal health record. It is not the complete legal health record.[facility]
--- OUTSIDE RECORDS SUMMARY | 2025-03-06 09:15 | XMS_ITS | Clinical Summary ---
Author Organization [facility] Address [address] [place] [address] Care Team Providers Care Nibbler Operator Name Role Phone Unavailable Primary Care [...]
--- OUTSIDE RECORDS SUMMARY | 2025-03-06 09:15 | XMS_ITS | Encounter Summary ---
Author Organization [facility] Address [address] [facility] [address] [place] [address] Phone Care Team Providers Care Certified Hyperbaric Technologist Name Role Phone Rehana Mackenzie MD Primary Care Provider [phone] Encounter Details Date Type Department Care Team (Late st Contact Info) Description 01/24/2025 Telephone Tweet Category [facility] [place] [facility] 15 [facility] [address] [place] [address] Rehana Mackenzie MD 15 [facility] [address] [place] [address] [email or web address] Social History Tobacco Use Types Packs/Day Years [...] high school, GED, job training, learning the Azerbaijani language, technical skills, or developing parenting skills)? [...] of this encounter Progress Notes * Eugenio Svaage - 01/24/2025 8:53 AM EDT 24-48 Hour [...] can cancel appointments anytime through your Patient [place]. We appreciate your understanding. Required Scripting for [...] can cancel appointments anytime through your Patient [place]. documented in this encounter Plan of Treatment Upcoming Encounters Date Type Department Care Team (Late st Contact Info) Description 04/02/2025 4:00 PM EST Telemedicine [facility] [address] [place] [address] [place] [address] Abbey Bey, [facility] [address] [facility], [address] [place] [address] 03/20/2026 3:40 PM EDT [facility] 15 [facility] 201 [place] [address] Rehana Mackenzie MD [address] [address] [email or web address] documented as of this encounter Visit Diagnoses Not on filedocumented in this encounter Additional Health Concerns Assessment Noted Time PHQ-9 Depression Total Score: 13 025 10:31 AM EDT PHQ-2 Depression Total Score: 0 01/10/20 25 3:09 PM EDT documented as of this encounter Care Teams Certified Hyperbaric Technologist Relationship Specialty Start Date End Date Rehana Mackenzie MD 15 [facility] 201 [place] [address] [email or web address] PCP - General Family Medicine 08/29/20 documented as of this encounter Additional Source Comments The information contained in this document represents components of the legal health record. It is not the complete legal health record.[facility]
== END 2025-03-06 09:11 | disposition home or self-care (01) ==
LOC: HO.HWS 08:38
PROVIDERS: PCP Family Medicine; Visit Provider Obstetrics & Gynecology
DX: R93.5 Abnormal findings on diagnostic imaging of other abdominal regions, including retroperitoneum (principal); N88.9 Noninflammatory disorder of cervix uteri, unspecified
CPT/HCPCS: 99213

== ENCOUNTER → 2025-03-06 08:38 | Outpatient (BNVA) | payer OTHER, SELFPAY | PROVIDERS: PCP Family Medicine; Visit Provider Obstetrics & Gynecology | DX: R93.5 Abnormal findings on diagnostic imaging of other abdominal regions, including retroperitoneum (principal); N88.9 Noninflammatory disorder of cervix uteri, unspecified | CPT/HCPCS: 99212 ==

== ENCOUNTER 2025-03-23 07:26 | Day surgery (SDC) | payer OTHER, SELFPAY ==
--- OUTSIDE RECORDS SUMMARY | 2025-03-05 16:00 | XMS_ITS | Encounter Summary ---
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 [...] as of this encounter Progress Notes * Abbey Bey, REYNALDOP-BC - 03/05/2025 4:00 PM EDT Consultation Follow-up Patient seen via telemedicine by video. Total time was 50 minutes. This included preparing for the visit by reviewing the record, connecting the video, direct patient interaction with evaluation and management recommendations, coordination of care, education and counseling. Post visit time was spent documenting the encounter and communicating with the referring clinician which all occurred the day of the encounter. At our last visit on February 07, 2025, we agreed on the following treatment plan Bipolar II disorder, rapid cycling with mixed features Bipolar II disorder with rapid cycling and mixed features characterized by hypomanic and major depressive episodes. Current symptoms include racing thoughts, pressured speech, irritability, and restlessness. Hypomania is more bothersome than depression. Lamotrigine was started for mood stabilization due to its favorable side effect profile compared to lithium, latuda, and quetiapine. She reports significant improvement in symptoms, including decreased impulsivity and irritability, and improved sleep. However, irritability persists daily, though less intense. Lamotrigine is well-tolerated withno rashes, and she reports feeling calmer and more stable overall. - Increase lamotrigine to 100 mg starting tomorrow night. - Continue sertraline at 75 mg and bupropion at 300 mg. - Consider increasing lamotrigine dose after two weeks if depressive symptoms appear or if further improvement is needed. Obsessive-compulsive disorder OCD managed with sertraline. She reports improvement in obsessive thoughts and compulsive behaviors, such as counting and arranging. She is able to move on from tasks more easily and reports a decrease in the intensity of obsessive- compulsive symptoms. - Continue sertraline at 75 mg. Chronic/complex post-traumatic stress disorder Chronic PTSD with symptoms exacerbated by recent stressors, including the of her father. She reports ongoing irritability and difficulty with interpersonal relationships, likely influenced by PTSD. She is working with her therapist to address these issues. - Continue therapy sessions to address PTSD-related symptoms. Generalized anxiety disorder Generalized anxiety disorder with persistent anxiety symptoms. She reports some improvement in day-to-day anxiety, feeling calmer and more solution-oriented. However, anxiety remains intense when thinking about life changes. - Continue current medication regimen. PHQ-2=0. REY-7= 9 TODAY Valorie Chris is a 39-year-old with bipolar II disorder, rapid cycling and mixed features, and obsessive-compulsive disorder presenting with mood instability, anxiety, irritability, and obsessive-compulsive symptoms. She reports ongoing mood instability, describing episodes of irritability, anxiety, and low mood. Since starting lamotrigine, she has noticed improvement in impulsivity, irritability, and sleep, withfurther benefit after increasing the dose to 100 mg nightly about 1 month ago. Irritability continues, though she experiences it with less intensity and frequency, now occurring on some days rather than daily. Situational factors, often related to trauma-related stressors, tend to trigger her anger. She recognizes early signs of anger and uses coping strategies such as leaving the room, reaching out for support, and communicating more effectively, which has helped her avoid acting out as she did earlier in the year. Persistent anxiety remains a daily experience for her, though she feels calmer and more solution-oriented overall. She has noticed improvement in day-to-day anxiety and describes greater ability to dissect and manage obsessive or ruminative thoughts. Anxiety related to life changes and trauma continues, with some days marked by feelings of being overwhelmed and impending doom, though these episodes occur less frequently and with less severity than before. She attributes some of this improvementto her current medication regimen and coping skills developed through therapy and participation in AA. Regarding depressive symptoms, she reports some days with low mood, decreased interest, and low energy, particularly over the past month. She describes these symptoms as situational and related to trauma and seasonal changes, with March historically being a difficult month for her. Most days, she experiences low energy, especially in the afternoons, and occasionally has difficulty leaving the house after work. She reports decreased appetite, which she has experienced throughout the year and which began during a period of increased anxiety and tracey. She denies experiencing deep or pervasive depression and continues to find interest in new activities, such as poetry reading and joining a tech writer's workshop, though she sometimes feels less enthusiastic or motivated to engage in them. She reports significant improvement in obsessive-compulsive symptoms, including counting and arranging behaviors, since starting lamotrigine. She estimates these symptoms have improved by over 50%, with less frequent and less intense urges. She describes greater ability to move on from tasks and feeling less stuck on compulsive behaviors. During periods of heightened anxiety, she continues to notice some increase in these symptoms but feels better able to manage them overall. Her current medications include lamotrigine 100 mg nightly (for approximately 1 month), sertraline 75 mg daily, and bupropion 300 mg daily in the morning. She reports that she has tolerated lamotrigine well without rash or significant side effects, though she occasionally feels sleepy in the morning. She notes that bupropion may have helped her energy somewhat but remains unsure of its overall benefit and wonders if it may have contributed to irritability or anxiety. She reports that sertralinehas helped reduce her anxiety. She describes good adherence to her medication regimen and has not reported any recent medication side effects or complications. She describes improved sleep, stating she is able to sleep in and nap when needed, which representsa significant improvement compared to when she previously woke at 4 a.m. regardless of circumstances. She denies current suicidal ideation when asked directly. REY-7=7. PHQ-9=7 Mental status examination Appearance: Casually dressed well-groomed cooperative patient. Speech: clear, normally paced, and goal directed. Cognition: intact with good understanding of issues discussed. Mood and affect: Mood good , affect full and stable and congruent with content of speech No SI/HI No psychotic thought content, thought form, or hallucinations. Insight and judgment Intact Assessment and Plan - Bipolar II Disorder, Most Recent Episode Mixed, Rapid Cycling. OCD. C-PTSD. Alcohol use disorder in remission. Cannabis use disorder in remission. Bipolar II disorder, rapid cycling, with mixed features Significant improvement in symptoms with lamotrigine, including decreased impulsivity, irritability, and improved sleep. Some irritability persists, though less intense, and is more situational and linked to trauma. Lamotrigine is well tolerated with no rashes. Considering further increase due to low mood and potential interaction with control reducing lamotrigine levels. - Increase lamotrigine to 200 mg daily - Continue sertraline at 75 mg daily - Decrease bupropion to 150 mg daily - Advise her to contact [facility] for a long-term psychiatric provider - Educate her on advocating for herself to obtain a provider Depression Depression with situational low mood, low energy, and decreased interest in activities, possibly related to trauma and seasonal changes. No clinical depression, but situational factors contribute to mood changes. Lamotrigine is expected to help with mood stabilization. - Increase lamotrigine to 200 mg daily - Decrease bupropion to 150 mg daily Obsessive-compulsive disorder Improvement in obsessive thoughts and behaviors since starting lamotrigine, with over 50% reductionin counting and arranging behaviors. She is able to move on from tasks more easily and recognize when to leave tasks to avoid frustration. - Continue sertraline at 75 mg daily - Continue lamotrigine as adjusted Generalized anxiety disorder Improvement in day-to-day anxiety. She feels calmer and more organized, though anxiety persists when thinking about life changes. Anxiety is more situational, linked to trauma and life stressors. - Continue sertraline at 75 mg daily - Continue lamotrigine as adjusted Alcohol use disorder, in sustained remission Heavy alcohol use, currently in sustained remission for three years. Continued participation in AA network is beneficial. - Continue participation in AA network. Cannabis use disorder, in sustained remission Cannabis use to cope with panic and racing thoughts, currently in sustained remission for six months. Therapy: Continue with weekly psychotherapy to address C-PTSD and other underlying issues. She willalso be encouraged to continue with her AA network for support. Long-Term Care: She was provided with resources to aid in finding a long-term psychiatric provider who can offer more consistent support and medication management for her complex conditions. She willcontact [facility], DOCTOR OF MEDICINE, and Service Net -Patient was given the opportunity to ventilate and receive support about psychosocial stressors. -Pros and cons of treatment were discussed as well as possible side effects of medication and the patient is in agreement with the current treatment plan. -We agreed to follow up in one month on April 02, 2025 at 4 pm via virtual appointment -Patient is aware that should they have any concerns or questions prior to their next scheduled appointment that they can contact this office documented in this encounter Plan of Treatment Upcoming Encounters Date Type Department Care Team (Late st Contact Info) Description 04/02/2025 4:00 PM EST Telemedicine [facility] [address] [place] [id number] Abbey Bey PMHNP-BC [address] [facility], [address] [place] [address] 03/20/2026 3:40 PM EDT Office Visit [facility] [place] [facility] [address] [facility] [address] [place] [address] Rehana Mackenzie MD [address] [facility] [address] [place] [address] [email or web address] documented as of this encounter Visit Diagnoses Diagnosis Mixed bipolar II disorder with rapid cycling- Primary Obsessive-compulsive disorder, unspecified type Posttraumatic stress disorder Alcohol use disorder in remission Cannabis use disorder in remission documented in this encounter Additional Health Concerns Assessment Noted Time PHQ-9 Depression Total Score: 7 03/05/20 25 4:09 PM EDT PHQ-2 Depression Total Score: 2 03/05/20 25 4:09 PM EDT documented as of this encounter Care Teams Clinic Nurse Relationship Specialty Start Date End Date Rehana Mackenzie MD [address] [address] [email or web address] PCP - General Family Medicine 08/29/20 documented as of this encounter Additional Source Comments The information contained in this document represents components of the legal health record. It is not the complete legal health record.[facility]
--- OUTSIDE RECORDS SUMMARY | 2025-03-06 17:57 | XMS_ITS | Encounter Summary ---
Author Organization [facility] Address [address] [facility] [address] [place] [address] Phone Care Team Providers Care Home Office Claims Examiner Name Role Phone Rehana Mackenzie MD Primary Care Provider [phone] Encounter Details Date Type Department Care Team (Late st Contact Info) Description 02/28/2025 Orders Only [facility] Family Medicine [address] [place] [address] ProviderSathish MD [address] [place], [place] [id number] Social History Tobacco Use Types Packs/Day Years [...] high school, GED, job training, learning the Yemeni language, technical skills, or developing parenting skills)? [...] Description 04/02/2025 4:00 PM EST Telemedicine [facility] [address] [place] [address] Abbey Bey, PMP-[address] [address] 03/20/2026 3:40 PM EDT Office Visit [facility] [place] [facility] [address] [facility] [address] [place] [address] Rehana Mackenzie MD 15 [facility] 201 [place] [address] [email or web address] documented as of this encounter Procedures Procedure [...] documented as of this encounter Care Teams Home Office Claims Examiner Relationship Specialty Start Date End Date Rehana Mackenzie MD 15 [facility] 201 [place] [address] PCP - General Family Medicine 08/29/20 documented as of this encounter Additional Source Comments The information contained in this document represents components of the legal health record. It is not the complete legal health record.[facility]
--- OUTSIDE RECORDS SUMMARY | 2025-03-06 17:57 | XMS_ITS | Encounter Summary ---
Author Organization [facility] Address [address] [facility] [address] [place] [address] Phone Care Team Providers Care Deployment Manager Name Role Phone Rebecca Serra MD Primary Care Provid er Rehana Mackenzie MD Primary Care Provider [phone] Encounter Details Date Type Department Care Team (Late st Contact Info) Description 12/17/2017 Procedure Pass [facility], Ct Scan - [address] [address] Social History Tobacco Use Types Packs/Day Years [...] Info) Description 04/02/2025 4:00 PM EST Telemedicine [facility] [address] [place] [address] Abbey Bey, REYNALDOP- 22 [facility], [address] [place] [address] 03/20/2026 3:40 PM EDT Office Visit [facility] [place] [facility] 15 [facility] [address] [place] [address] Rehana Mackenzie MD 15 [facility] [address] [place] [address] [email or web address] documented as of this encounter Visit Diagnoses Not on filedocumented in this encounter Care Teams Deployment Manager Relationship Specialty Start Date End Date Rebecca Serra MD [address] [place] [address] PCP - General Internal Medicine 12/16/17 08/28/20 Rehana Mackenzie MD 15 [facility] [address] [place] [address] [email or web address] PCP - General Family Medicine 08/29/20 documented as of this encounter Additional Source Comments The information contained in this document represents components of the legal health record. It is not the complete legal health record.[facility]
--- OUTSIDE RECORDS SUMMARY | 2025-03-06 17:57 | XMS_ITS | Encounter Summary ---
Author Organization [facility] Address [address] [facility] [address] [place] [address] Phone Care Team Providers Care Pest Locator Name Role Phone Rehana Mackenzie MD Primary Care Provider [phone] Encounter Details Date Type Department Care Team (Late st Contact Info) Description 01/24/2025 Telephone [facility] [place] [facility] 15 [facility] [address] [place] [address] Rehana Mackenzie MD 15 [facility] [address] [place] [address] [email or web address] Social History Tobacco Use Types Packs/Day Years [...] high school, GED, job training, learning the Czech language, technical skills, or developing parenting skills)? [...] can cancel appointments anytime through your Patient [place]. We appreciate your understanding. Required Scripting for [...] can cancel appointments anytime through your Patient [place]. documented in this encounter Plan of Treatment Upcoming Encounters Date Type Department Care Team (Late st Contact Info) Description 04/02/2025 4:00 PM EST Telemedicine [facility] Behavioral Health [address] [place] [address] [place] [address] Abbey Bey, [facility] 22 [facility], [address] [place] [address] 03/20/2026 3:40 PM EDT [facility] 15 [facility] [address] [place] [address] Rehana Mackenzie MD [address] [address] [email or web address] documented as of this encounter Visit Diagnoses Not on filedocumented in this encounter Additional Health Concerns Assessment Noted Time PHQ-9 Depression Total Score: 13 025 10:31 AM EDT PHQ-2 Depression Total Score: 0 01/10/20 25 3:09 PM EDT documented as of this encounter Care Teams Pest Locator Relationship Specialty Start Date End Date Rehana Mackenzie MD 15 [facility] [address] [place] [address] [email or web address] PCP - General Family Medicine 08/29/20 documented as of this encounter Additional Source Comments The information contained in this document represents components of the legal health record. It is not the complete legal health record.[facility]
--- OUTSIDE RECORDS SUMMARY | 2025-03-06 17:57 | XMS_ITS | Encounter Summary ---
Author Organization [facility] Address [address] [facility] [address] [place] [address] Phone Care Team Providers Care Marine Chronometer Assembler Name Role Phone Rehana Mackenzie MD Primary Care Provider [phone] Reason for Visit * Reason Onset Date Comments Triage 01/10/2025 Raised bumps on back os thighs Encounter Details Date Type Department Care Team (Late st Contact Info) Description 01/10/2025 Telephone [facility] [place] [facility] 15 [facility] [address] [place] [address] Rehana Mackenzie MD 15 [facility] [address] [place] [address] [email or web address] Triage (Raised bumps on back os thighs) [...] high school, GED, job training, learning the [place]inean language, technical skills, or developing parenting skills)? [...] Call Back Number: (if not patient, name/relationship [phone] Symptom(s): Triage (Raised bumps on back [...] meantime, we recommend seeking care at a [facility] [place], through [facility] on Patient [place], or at a local urgent care center to address your symptoms. documented in this encounter Plan of Treatment Upcoming Encounters Date Type Department Care Team (Late st Contact Info) Description 04/02/2025 4:00 PM EST Telemedicine [facility] Behavioral Health 22 [place] [address] Abbey Bey, PMHNP- 22 [facility], [address] [place] [address] 03/20/2026 3:40 PM EDT Office Visit [facility] [place] Primary [facility] 15 [facility] [address] [place] [address] Rehana Mackenzie MD 15 [facility] [place]. [address] [place] [address] documented as of this encounter Visit Diagnoses Not on filedocumented in this encounter Additional Health Concerns Assessment Noted Time PHQ-9 Depression Total Score: 13 025 10:31 AM EDT PHQ-2 Depression Total Score: 0 01/10/20 25 3:09 PM EDT documented as of this encounter Care Teams Marine Chronometer Assembler Relationship Specialty Start Date End Date Rehana Mackenzie MD [address] [address] [email or web address] PCP - General Family Medicine 08/29/20 documented as of this encounter Additional Source Comments The information contained in this document represents components of the legal health record. It is not the complete legal health record.[facility]
--- OUTSIDE RECORDS SUMMARY | 2025-03-06 17:57 | XMS_ITS | Encounter Summary ---
Author Organization [facility] Address [address] [place] [address] Phone Care Team Providers Care Marine Tower Operator Name Role Phone Rehana Mackenzie MD Primary Care Provider [phone] Encounter Details Date Type Department Care Team (Late st Contact Info) Description 08/29/2020 Procedure Pass [facility], [address] [place] [address] Social History Tobacco Use Types Packs/Day Years [...] Info) Description 04/02/2025 4:00 PM EST Telemedicine [facility] Behavioral Health 22 [place] [address] Abbey Bey, PMHNP- 22 [facility], [facility] 205 [place] [address] 03/20/2026 3:40 PM EDT Office Visit [facility] Primary Care 15 [facility] [address] [place] [address] Rehana Mackenzie MD [address] [place] [address] 201 [place] [address] [email or web address] documented as of this encounter Visit Diagnoses Not on filedocumented in this encounter Additional Health Concerns Assessment Noted Time PHQ-2 Depression Total Score: 2 08/30/19 21 8:58 AM EDT documented as of this encounter Care Teams Marine Tower Operator Relationship Specialty Start Date End Date Rehana Mackenzie MD 15 [facility]. [address] [place] [address] PCP - General Family Medicine 08/29/20 documented as of this encounter Additional Source Comments The information contained in this document represents components of the legal health record. It is not the complete legal health record.[facility]
--- OUTSIDE RECORDS SUMMARY | 2025-03-06 17:57 | XMS_ITS | Clinical Summary ---
Author Organization [facility] Address [address] [place] [address] Care Team Providers Care Electrician Sound Name Role Phone Unavailable Primary Care Provider [...]
--- OUTSIDE RECORDS SUMMARY | 2025-03-06 17:57 | XMS_ITS | Clinical Summary ---
Author Organization [facility] Address [address] [place] [address] Care Team Providers Care Block Breaker Operator Name Role Phone Jessica Cabral MD Primary Care Provider [phone] Surgical History Surgery Date Site/Laterality Comments OTHER [...] age to complete this topic Care Teams Block Breaker Operator Relationship Specialty Start Date End Date Jessica Cabral MD [address] [place] [address] PCP - General Internal Medicine 04/30/11
--- OUTSIDE RECORDS SUMMARY | 2025-03-06 17:57 | XMS_ITS | Clinical Summary ---
Author Organization [facility] Address [address] [place] [address] Phone Care Team Providers Care Ruby Software Developer Name Role Phone Rehana Mackenzie MD Primary Care Provider [phone] Allergies Active Allergy Reactions Criticality Noted Date [...] Team Description 03/05/2025 4:00 PM EDT Telemedicine [address] [place] [address] Abbey Bey, [facility] Mixed bipolar II disorder with rapid cycling (Primary Dx); Obsessive-compulsive disorder, unspecified type; Posttraumatic stress disorder; Alcohol use disorder in remission; Cannabis use disorder in remission 02/28/2025 Orders Only [facility] Family [address] [place] [address] Provider, MD Sathish 02/07/2025 3:00 PM EDT Telemedicine [address] [place] [address] Abbey Bey [facility] Mixed bipolar II disorder with rapid cycling (Primary Dx); Obsessive-compulsive disorder, unspecified type; PTSD (post-traumatic stress disorder) 01/24/2025 Telephone [facility] Primary Care [address] [place] [address] Rehana Mackenzie MD 01/11/2025 4:00 PM EDT Office Visit [address] [place] [address] Isabel Trujillo CNP Rash and other nonspecific skin eruption (Primary Dx) 01/11/2025 Orders Only [address] [place] [address] Unknown, Unknown, 01/10/2025 Telephone [facility] Primary Care [address] [place] [address] Rehana Mackenzie MD Triage (Raised bumps on back os thighs) 01/09/2025 3:00 PM EDT Telemedicine [address] [place] [address] Abbey Bey [facility] Mixed bipolar II disorder with rapid cycling (Primary Dx); Complex posttraumatic stress disorder; Obsessive-compulsive disorder, unspecified type; Alcohol use disorder in remission; Cannabis use disorder in remission 01/04/2025 1:30 PM EDT Telemedicine [facility] [address] [place] [address] Abbey Bey [facility] Obsessive-compulsive disorder, unspecified type (Primary Dx); Bipolar II disorder; Mixed bipolar II disorder with rapid cycling; Complex posttraumatic stress disorder 12/07/2024 3:40 PM EDT Office Visit [facility] Primary [facility] [address] [place] [address] Gino Hall MD Biceps tendonitis on right [...] high school, GED, job training, learning the Martiniquais language, technical skills, or developing parenting skills)? [...] Info) Description 04/02/2025 4:00 PM EST Telemedicine [facility] Behavioral Health [address] [place] [address] Abbey Bey, PMHNP- 22 [facility], [address] [place] [address] [email or web address] 03/20/2026 3:40 PM EDT Office Visit [facility] [place] Primary Care 15 [facility] [address] [place] [address] Rehana Mackenzie MD 15 [facility] [address] [place] [address] [email or web address] Health Maintenance Due Date Last Done Comments [...] AM EDT) HCV NON-REACTIV E NON-REACTI VE [facility] Blood 09/30/2022 9:30 AM EDT 09/30/2022 9:32 AM EDT Rehana Mackenzie MD LAB BLOOD ORDERABLES Final Resul t Performing Organization Address City/State/[facility] Co de Phone Number [address] [address] * HM PAP SMEAR FOR RESULT ENTRY ONLY (07/29/2020) HM Pap smear normal Comment:norm Historical Provider HEALTH MAINTENANCE Final Result from Last 3 Months or Most Recently Relevant to Health Maintenance Insurance [facility] [employer] [facility] CONNECTORCARE DIRECT CONNECTORCARE DIRECT CONNECTORCARE DIRECT [employer] [facility] CONNECTORCARE DIRECT CONNECTORCARE DIRECT CONNECTORCARE DIRECT [employer] PUBLIC PLANS CONNECTORCARE DIRECT CONNECTORCARE DIRECT CONNECTORCARE DIRECT Care Teams Ruby Software Developer Relationship Specialty Start Date End Date Rehana Mackenzie MD NPI: [id number] [place] [id number] [email or web address] PCP - General Family Medicine 08/29/20 Additional Source Comments The information contained in this document represents components of the legal health record. It is not the complete legal health record.[facility]
--- OUTSIDE RECORDS SUMMARY | 2025-03-06 17:57 | XMS_ITS | Clinical Summary ---
Author Organization [employer] Address [address] [facility] 7[address] [place] [address] Care Team Providers Care Fire Protection Engineering Technician Name Role Phone Unavailable Primary Care Provider [...] Description 02/15/2025 1:00 PM EDT Office Visit [facility] [address] [place] [address] Leo Mclaughlin DDS Severe dental caries (Primary [...] Description 03/12/2025 3:00 PM EDT Office Visit [facility] [address] [place] [address] Power-MosherPaulEbony, DDS [address] [place] [address] Health Maintenance Due Date Last Done Comments [...]
[2025-03-20 15:25] VITALS: BMI 22.3
--- NOTE | 2025-03-21 09:08 | P.CONAN_ITS ---
Documented by User: Selin Winston NP 03/21/25 09:09 HPI - Anesthesia Eval Consult details Narrative: 39yo F for D&C Hysteroscopy,possible myomectomy,possible polypectomy PMFSH Active Problems Active Problems: All Active Problems Abnormal ultrasound of endometrium (Acute) Abnormal uterine bleeding (AUB) (Acute) Lesion of cervix (Acute) Screening for STD (sexually transmitted disease) (Acute) Cervical polyp (Acute) Breast mass, right (Acute) Irregular bleeding (Acute) Encounter for well woman exam with routine gynecological exam (Acute) Past Medical History Medical History Hx of bipolar disorder Cervical polyp Breast mass, right Irregular bleeding Anxiety Family History Family History Father Diabetes Cancer Neuro-endocrine cancer Mother Diabetes Stroke Maternal Grandfather Cancer Mesothelioma Paternal Uncle Stomach cancer Family/Other FH: mental illness Surgical History Surgical History Hx of wisdom tooth extraction History of D&C Social History Social History Alcohol intake: former Patient Tobacco Use Status: Current someday Tobacco user Tobacco use type: Cigar Use of substances other than those prescribed or required for medical reasons: Yes Substance Use Type: Marijuana Substance Use Type Other:: smoked-ld 03/22 Are you DNR?: No Advance Directives: No Advance Directives Information Provided: Yes 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 Sexual orientation: Straight/Heterosexual Gender identity: Female Meds Allergies Allergy/AdvReac Type Severity Reaction Status Date / Time sulfamethoxazole (From Allergy Intermediate DIARRHEA Verified 03/23/25 07:44 BACTRIM) Home Medications ?Medication ?Instructions ?Recorded ?Confirmed ?Last Taken ?Type sertraline 50 mg tablet 75 mg PO DAILY 08/05/2303/01 Unknown History bupropion HCl 300 mg 24 hr tablet, 150 mg PO DAILY 02/2203/23/25 Unknown His tory extended release lamotrigine 200 mg tablet 200 mg PO DAILY 03/06/25 Unknown History (Lamictal) Exam Height,Weight and Vital Signs: Height 5 ft 3 in Weight 57.153 kg Assessment and Plan Assessment Anesthesia Assessment: Chart Reviewed Documented by User: Ramón Burnett MD 03/23/25 09:48 PMFSH Past Medical History Medical History Hx of bipolar disorder Cervical polyp Breast mass, right Irregular bleeding Anxiety Family History Family History Father Diabetes Cancer Neuro-endocrine cancer Mother Diabetes Stroke Maternal Grandfather Cancer Mesothelioma Paternal Uncle Stomach cancer Family/Other FH: mental illness Family history of problems with anesthesia: No Surgical History Surgical History Hx of wisdom tooth extraction History of D&C History of Problems with Anesthesia: No Social History Social History Alcohol intake: former Patient Tobacco Use Status: Current someday Tobacco user Tobacco use type: Cigar Use of substances other than those prescribed or required for medical reasons: Yes Substance Use Type: Marijuana Substance Use Type Other:: smoked-ld 03/22 Are you DNR?: No Advance Directives: No Advance Directives Information Provided: Yes 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 Sexual orientation: Straight/Heterosexual Gender identity: Female Meds Allergies Allergy/AdvReac Type Severity Reaction Status Date / Time sulfamethoxazole (From Allergy Intermediate DIARRHEA Verified 03/23/25 07:44 BACTRIM) Home Medications ?Medication ?Instructions ?Recorded ?Confirmed ?Last Taken ?Type sertraline 50 mg tablet 75 mg PO DAILY 08/05/2303/01 Unknown History bupropion HCl 300 mg 24 hr tablet, 150 mg PO DAILY 02/2203/23/25 Unknown History extended release lamotrigine 200 mg tablet 200 mg PO DAILY 03/06/25 Unknown History (Lamictal) Exam Exam Date and Time: 03/23/2025 Airway Mallampati Class: I TM Dist: >3cm Neck ROM: Full Heart: rrr Lungs: ctab vesicular Assessment and Plan Assessment Anesthesia Assessment: Anesthesia Plan Discussed Final Anesthetic Review Family History of Problems with Anesthesia: No History of Problems with Anesthesia: No NPO: Yes ASA Class: II Final Preanesthetic Review: No Changes in Pt Med Stat, Meds/Allgs Chart Reviewed, Consent Obtained/Reviewed and Anes Risks/Benef Reviewed Patient Risk: Low Procedure Risk: Low Anesthetic Plan Anesthetic Plan: GA Disposition: Standard PACU
[2025-03-23 07:44] VITALS: BMI 23.0
[2025-03-23 07:51] VITALS: BP 118/78; PULSE 76; RESP 15; TEMP 36.2; O2SAT 100
[2025-03-23 07:58] LABS: UPreg QC Valid YES
[2025-03-23] MEDS: Lactated Ringers 1,000 ML 100 ML IVCONT (08:01)
--- NOTE | 2025-03-23 09:33 | MHC.SHP ---
Pre-Procedural Eval Section A - 24 Hr Update-Section A only Date of Service: 03/23/25 The patient is an INPATIENT: No Changes since office visit: No Cold of Flu in the past 2 weeks, No New Medical Problems, No Changes in Medication and No Patient answered all questions The patient has been examined within 24 hours of the surgical procedure. The History & Physical has been completed within 30 days and I have reviewed it.: Yes Section B - Complete if H&P > 30 days Chief Complaint: Abnormal findings on diagnostic imaging of other Allergies: Allergies Allergy/AdvReac Type Severity Reaction Status Date / Time sulfamethoxazole (From Allergy Intermediate DIARRHEA Verified 03/23/25 07:44 BACTRIM) Plan Diagnosis/Plan: Unchanged I have reviewed the history and physical and performed a pertinent physical examination on my patient. No changes have occurred unless specified. Time Spent With Patient Time: Total time managing care of this patient today ____ minutes.
--- NOTE | 2025-03-23 10:19 | PM.OP ---
Brief Operative Note Date of Service: 03/23/25 Pre-op diagnosis: Abnormal endometrium by ultrasound Post-op diagnosis: same (Normal endometrial cavity) Procedure: Hysteroscopy D&C Surgeon: Herman Hicks MD Anesthesia: GLMA Was an Bilingual Patient Support Caseworker used for this Procedure?: No Estimated blood loss (mL): 0 Pathology: other (Endometrial Scrapping) Condition: stable Disposition: PACU
--- NOTE | 2025-03-23 10:20 | W.PM.OPN ---
Operative Note Operative Note Date of Service: 03/23/25 Narrative: Preop Diagnosis: Abnormal endometrium by ultrasound Operation: Diagnostic Hysteroscopy, Dilataion & Curettage Post Op Diagnosis: Normal endometrial and endocervical cavity, no evidence of pathology QBL: Minimal Anesthesia: GLMA Surgeon: Herman Hicks MD Refrigeration Engineer: None Complication: None Pathology: Endometrial Scrapings Procedure: The patient was put in the dorsal lithotomy position, scrubbed, and draped in the usual manner. A sterile speculum was inserted in the patient's vagina. The anterior lip of the cervix was grasped with a single tooth tenaculum. The cervix was dilated up to 5 mm, then the scope was inserted in the patient's uterus. Inspection revealed normal endocervical & endometrial cavity with no evidence of pathology. The scope was taken out of the uterine cavity , then sharp curetting was carried on with no complications. At the end of the procedure, all instruments were taken out of the patient uterine and vaginal cavity. The single tooth tenaculum was removed and homeostasis was assured using pressure. The patient tolerated the procedure well and was transferred to the PACU in a stable condition.
[2025-03-23 10:22] VITALS: BP 125/75; PULSE 75; RESP 10; TEMP 36.8; O2SAT 100
[2025-03-23 10:27] VITALS: BP 120/76; PULSE 75; RESP 12; O2SAT 100
[2025-03-23 10:32] VITALS: BP 121/75; PULSE 75; RESP 14; O2SAT 100
[2025-03-23 10:37] VITALS: BP 121/76; PULSE 72; RESP 14; O2SAT 100
[2025-03-23 10:52] VITALS: BP 118/68; PULSE 77; RESP 16; TEMP 36.3; O2SAT 98
== END 2025-03-23 11:15 | disposition home or self-care (01) ==
PROVIDERS: PCP Family Medicine; Visit Provider Obstetrics & Gynecology
PROC: 0UDB8ZZ Extraction of Endometrium, Via Natural or Artificial Opening Endoscopic (ICD-10-PCS; CPT 58558; principal; 2025-03-23 09:40)
DX: N88.8 Other specified noninflammatory disorders of cervix uteri (principal); Z88.2 Allergy status to sulfonamides; F41.9 Anxiety disorder, unspecified; Z79.899 Other long term (current) drug therapy
CPT/HCPCS: 58558; 81025; 88305; J0131; J1100; J2003; J2405; J2704; J3010

== ENCOUNTER → 2025-03-23 07:26 | Outpatient (BNV) | payer OTHER, SELFPAY | PROVIDERS: PCP Family Medicine; Visit Provider Obstetrics & Gynecology | DX: N85.9 Noninflammatory disorder of uterus, unspecified (principal) | CPT/HCPCS: 58558 ==

== ENCOUNTER 2025-04-11 07:39 | Outpatient (AMB) | payer OTHER, SELFPAY ==
--- OUTSIDE RECORDS SUMMARY | 2025-04-11 07:41 | XMS_ITS | Clinical Summary ---
Author Organization [facility] Address [address] [place] [address] Care Team Providers Care Ironworker Apprentice Shop Name Role Phone Unavailable Primary Care Provider [...]
--- OUTSIDE RECORDS SUMMARY | 2025-04-11 07:41 | XMS_ITS | Clinical Summary ---
Author Organization [employer] Address [address] [facility] [address] [place] [address] Care Team Providers Care Securities Clerk Name Role Phone Unavailable Primary Care Provider [...] 3 times daily. 15 tablet 02/15/2025 Active Active Problems Problem Noted Date Diagnosed Date Severe dental caries 02/15/2025 Encounters Date Type Department Care Team Description 02/15/2025 1:00 PM EDT Office Visit [facility] [address] [place] [address] Leo Mclaughlin DDS Severe dental caries (Primary [...] Mass Index - - Plan of Treatment Health Maintenance Due Date [...]
--- OUTSIDE RECORDS SUMMARY | 2025-04-11 07:41 | XMS_ITS | Encounter Summary ---
Author Organization [facility] Address [address] [place] [address] Phone Care Team Providers Care Supervisor Pullet Farm Name Role Phone Rehana Mackenzie MD Primary Care Provider [phone] Encounter Details Date Type Department Care Team (Late st Contact Info) Description 01/24/2025 Telephone [facility] [place] [facility] [address] [place] [address] Rehana Mackenzie MD [address] [place] [address] [email or web address] Social History Tobacco Use Types Packs/Day Years [...] high school, GED, job training, learning the [place] Citizen language, technical skills, or developing parenting skills)? [...] can cancel appointments anytime through your Patient Randall. We appreciate your understanding. Required Scripting for [...] can cancel appointments anytime through your Patient Randall. documented in this encounter Plan of Treatment Upcoming Encounters Date Type Department Care Team (Late st Contact Info) Description 03/20/2026 3:40 PM EDT Office Visit [facility] [place] [facility] [address] [facility] [address] [place] [address] Rehana Mackenzie MD [address] [facility] [address] [place] [address] documented as of this encounter Visit Diagnoses Not on filedocumented in this encounter Additional Health Concerns Assessment Noted Time PHQ-9 Depression Total Score: 13 025 10:31 AM EDT PHQ-2 Depression Total Score: 0 01/10/20 25 3:09 PM EDT documented as of this encounter Care Teams Supervisor Pullet Farm Relationship Specialty Start Date End Date Rehana Mackenzie MD [address] [place] [address] [email or web address] PCP - General Family Medicine 08/29/20 documented as of this encounter Additional Source Comments The information contained in this document represents components of the legal health record. It is not the complete legal health record.[facility]
--- OUTSIDE RECORDS SUMMARY | 2025-04-11 07:41 | XMS_ITS | Clinical Summary ---
Author Organization [facility] Address [address] [place] [address] Phone Care Team Providers Care Integration Technician Name Role Phone Rehana Mackenzie MD Primary Care Provider [phone] Allergies Active Allergy Reactions Criticality Noted Date Comments Sulfamethoxazole-Trimethoprim Dizziness 2017 Medications levonorgestrel- ethinyl estradiol (SEASONALE) 0.15-0.03 mg per tablet Take 1 tablet by mouth daily. 09/13/19 24 Active triamcinolone acetonide 0.025 % ointmentIndicat ions:Rash and other nonspecific skin eruption Apply topically 2 (two) times a day. 30 g 01/12/20 25 Active sertraline (ZOLOFT) 50 MG tablet TAKE 1 AND 1/2 TABLETS(75 MG) BY MOUTH DAILY 135 tablet 3 03/13/20 25 Active buPROPion (WELLBUTRIN XL) 150 MG ER 24 hr tablet Take 1 tablet (150 mg total) by mouth daily. 90 tablet 04/02/20 25 026 Active lamoTRIgine (LAMICTAL) 200 MG IMMEDIATE release tablet Take 1 tablet (200 mg total) by mouth daily. 30 tablet 2 04/02/20 25 026 Active sertraline (ZOLOFT) 50 MG tablet Take 1.5 tablets (75 mg total) by mouth daily. 135 tablet 11/24/19 25 025 Discontinued lamoTRIgine (LAMICTAL) 200 MG IMMEDIATE release tablet Take 1 tablet (200 mg total) by mouth daily. 30 tablet 10/11/17 24 025 Discontinued(Re order) buPROPion (WELLBUTRIN XL) 150 MG ER 24 hr tablet Take 1 tablet (150 mg total) by mouth daily. 30 tablet 03/05/20 025 Discontinued(Re order) Active Problems Problem Noted Date Diagnosed Date [...] Encounters Date Type Department Care Team Description 04/02/2025 4:00 PM EST Telemedicine [facility] [address] [place] [address] Abbey Bey, [facility]- Mixed bipolar II disorder with rapid cycling (Primary Dx); Obsessive-compulsive disorder, unspecified type; Posttraumatic stress disorder; Alcohol use disorder in remission; Cannabis use disorder in remission 03/09/2025 Refill [facility] [address] [place] [address] Rehana Mackenzie MD Medication Refill 03/05/2025 4:00 PM EDT Telemedicine [facility] [address] [place] [address] Abbey [facility] Mixed bipolar II disorder with rapid cycling (Primary Dx); Obsessive-compulsive disorder, unspecified type; Posttraumatic stress disorder; Alcohol use disorder in remission; Cannabis use disorder in remission 02/28/2025 Orders Only [address] [place] [address] ProviderSathish MD 02/07/2025 3:00 PM EDT Telemedicine [address] [place] [address] Abbey Bey [facility] Mixed bipolar II disorder with rapid cycling (Primary Dx); Obsessive-compulsive disorder, unspecified type; PTSD (post-traumatic stress disorder) 01/24/2025 Telephone [facility] [address] [place] [address] Rehana Mackenzie MD 01/11/2025 4:00 PM EDT Office Visit [address] [place] [address] Isabel Trujillo CNP Rash and other nonspecific skin eruption (Primary Dx) 01/11/2025 Orders Only [address] [place] [address] Unknown, MD Candice 01/10/2025 Telephone [facility] Primary [facility] [address] [place] [address] Rehana Mackenzie MD Triage (Raised bumps on back os thighs) 01/09/2025 3:00 PM EDT Telemedicine [address] [place] [address] Abbey Bey [facility] Mixed bipolar II disorder with rapid cycling (Primary Dx); Complex posttraumatic stress disorder; Obsessive-compulsive disorder, unspecified type; Alcohol use disorder in remission; Cannabis use disorder in remission from Last 3 Months Immunizations Immunization Administration [...] high school, GED, job training, learning the Ethiopian language, technical skills, or developing parenting skills)? [...] Description 03/20/2026 3:40 PM EDT Office Visit [facility] [place] [address] [facility] [facility] [address] [place] [address] Rehana Mackenzie MD [address] [place] [address] Health Maintenance Due Date Last Done Comments HIV ONE-TIME SCREENING (18-6 5 YEARS) 08/08/2003 PAP SMEAR 07/30/2023 07/29/2020 INFLUENZA VACCINE (#1) 2024 COVID-19 VACCINE (2 2024-2 6 season) 2025 09/11/2020 DEPRESSION SCREENING 04/02/2026 04/02/2025, 04/02/2025 Adult Td,Tdap Booster 01/19/2027 01/19/2017 , 03/08/2011, 05/31/1998 MENINGOCOCCAL VACCINES (ACWY) Aged Out 01/18/2004 No longer eligible based on patient's age to complete this topic HEPATITIS C SCREENING Completed 09/30/2022 SMOKING STATUS SCREENING (On ce After 26 Yrs) Completed 04/02/2025 HEPATITIS A VACCINES Aged Out No long er eligible based on patient's age to complete this topic HIB VACCINES Aged Out No longer eligi ble based on patient's age to complete this topic IPV VACCINES Aged Out No longer eligi ble [...] (02/27/2025 9:28 AM EDT) us Historical Provider MD DEMARCO XR CHEST Final Res ult * Outside Lab (01/10/2025 11:46 AM EDT) us Unknown Unknown LAB BLOOD BKR ORDERABLES Franchesca l Result * Hepatitis C antibody, qualitative (09/30/2022 9:30 AM EDT) HCV NON-REACTIV E NON-REACTI VE [facility] Blood 09/30/2022 9:30 AM EDT 09/30/2022 9:32 AM EDT us Rehana Mackenzie MD LAB BLOOD BKR ORDERABLES Final R esult Performing Organization Address City/State/[facility] Co de Phone Number [address] [address] * PAP SMEAR FOR RESULT ENTRY ONLY (07/29/2020) Pap smear normal Comment:norm us Historical Provider HEALTH MAINTENANCE Final Result from Last 3 Months or Most Recently Relevant to Health Maintenance Insurance DIRECT [address] [place] [address] [address] [place] [address] [place] [address] [employer] DIRECT [employer] DIRECT [employer] DIRECT [employer] DIRECT [employer] DIRECT Care Teams Integration Technician Relationship Specialty Start Date End Date Rehana Mackenzie MD [address] [place] [id number] PCP - General Family Medicine 08/29/20 Additional Source Comments The information contained in this document represents components of the legal health record. It is not the complete legal health record.[facility]
--- OUTSIDE RECORDS SUMMARY | 2025-04-11 07:41 | XMS_ITS | Encounter Summary ---
Author Organization [facility] Address [address] [place] [address] Phone Care Team Providers Care Financial Systems Manager Name Role Phone Rehana Mackenzie MD Primary Care Provider [phone] Encounter Details Date Type Department Care Team (Late st Contact Info) Description 08/29/2020 Procedure Pass [facility], [address] [place] [address] Social History Tobacco Use Types Packs/Day Years [...] high school, GED, job training, learning the [place] language, technical skills, or developing parenting skills)? [...] Description 03/20/2026 3:40 PM EDT Office Visit [facility] [address] [facility] [address] [facility] [address] [place] [address] Rehana Mackenzie MD [address] [facility]. [address] [place] [address] [email or web address] documented as of this encounter Visit Diagnoses Not on filedocumented in this encounter Additional Health Concerns Assessment Noted Time PHQ-2 Depression Total Score: 2 08/30/19 21 8:58 AM EDT documented as of this encounter Care Teams Financial Systems Manager Relationship Specialty Start Date End Date Rehana Mackenzie MD [address] [facility] [place] [address] PCP - General Family Medicine 08/29/20 documented as of this encounter Additional Source Comments The information contained in this document represents components of the legal health record. It is not the complete legal health record.[facility]
--- OUTSIDE RECORDS SUMMARY | 2025-04-11 07:42 | XMS_ITS | Clinical Summary ---
Author Organization [facility] Address [address] [place] [address] Care Team Providers Care Pipe Fitter Welding Name Role Phone Jessica Cabral MD Primary Care Provider [phone] Surgical History Surgery Date Site/Laterality Comments OTHER [...] 03/27/2009 02/27/2009 Depression Screening 05/31/2024 COVID-19 Vaccine (2024-2 6 season) 2025 Influenza Vaccine (#1) 2025 RSV [...] age to complete this topic Care Teams Pipe Fitter Welding Relationship Specialty Start Date End Date Jessica Cabral MD [address] [place] [address] PCP - General Internal Medicine 04/30/11
--- OUTSIDE RECORDS SUMMARY | 2025-04-11 07:42 | XMS_ITS | Encounter Summary ---
Author Organization [facility] Address [address] [facility] [address] [place] [address] Phone Care Team Providers Care Extrusion Die Coordinator Name Role Phone Rebecca Serra MD Primary Care Provid er Rehana Mackenzie MD Primary Care Provider [phone] Encounter Details Date Type Department Care Team (Late Contact Info) Description 12/17/2017 Procedure Pass [facility], Ct Scan - [address] [address] Social History Tobacco Use Types Packs/Day Years [...] Description 03/20/2026 3:40 PM EDT Office Visit [facility] [address] [place] [address] Rehana Mackenzie MD [address] [facility] [address] [place] [address] documented as of this encounter Visit Diagnoses Not on filedocumented in this encounter Care Teams Extrusion Die Coordinator Relationship Specialty Start Date End Date Rebecca Serra MD [address] [place] [address] PCP - General Internal Medicine 12/16/17 08/28/20 Rehana Mackenzie MD [address] [place] [address] [email or web address] PCP - General Family Medicine 08/29/20 documented as of this encounter Additional Source Comments The information contained in this document represents components of the legal health record. It is not the complete legal health record.[facility]
--- OUTSIDE RECORDS SUMMARY | 2025-04-11 07:42 | XMS_ITS | Encounter Summary ---
Author Organization [facility] Address [address] [facility] [address] [place] [address] Phone Care Team Providers Care Circular Knitter Helper Name Role Phone Rehana Mackenzie MD Primary Care Provider [phone] Reason for Visit * Reason Onset Date Comments Triage 01/10/2025 Raised bumps on back os thighs Encounter Details Date Type Department Care Team (Late st Contact Info) Description 01/10/2025 Telephone [facility] [place] [facility] [address] [facility] [address] [place] [address] Rehana Mackenzie MD [address] [facility] [address] [place] [address] [email or web address] Triage (Raised bumps on back os thighs) [...] high school, GED, job training, learning the [place]ian language, technical skills, or developing parenting skills)? [...] Call Back Number: (if not patient, name/relationship [phone] Green Symptom(s): Triage (Raised bumps on back [...] meantime, we recommend seeking care at a [facility], through [facility] on Patient Horatio, or at a local urgent care center to address your symptoms. documented in this encounter Plan of Treatment Upcoming Encounters Date Type Department Care Team (Late st Contact Info) Description 03/20/2026 3:40 PM EDT Office Visit [facility] [address] [facility] [address] [place] [address] Rehana Mackenzie MD [address] [facility] [place] [address] [email or web address] documented as of this encounter Visit Diagnoses Not on filedocumented in this encounter Additional Health Concerns Assessment Noted Time PHQ-9 Depression Total Score: 13 025 10:31 AM EDT PHQ-2 Depression Total Score: 0 01/10/20 25 3:09 PM EDT documented as of this encounter Care Teams Circular Knitter Helper Relationship Specialty Start Date End Date Rehana Mackenzie MD [address] [facility] [address] [place] [address] [email or web address] PCP - General Family Medicine 08/29/20 documented as of this encounter Additional Source Comments The information contained in this document represents components of the legal health record. It is not the complete legal health record.[facility]
--- NOTE | 2025-04-11 07:43 | MHC.OFFVIS ---
Vital Signs 04/11/25 07:45 Height 5 ft 3 in Weight 132 lb BMI 23.4 BP 108/60 Intake Visit Reasons: post op Allergies sulfamethoxazole (From BACTRIM) Allergy (Intermediate, Verified 03/23/25 07:44) DIARRHEA HPI Comments Details: The patient is presenting post hysteroscopy D&C no complaints minimal vaginal bleeding no feverishness chills or abdominal pain. The pathology showed the following: Endometrium, curettage: Benign endometrium with atrophic glands, focal secretory/mucinous change, and focal decidual stromal change consistent with progestin effect, and benign endocervical glandular mucosa; no atypia or carcinoma The following workup was done.: H&H= 13.5/40.9 TSH, hCG, GC and chlamydia were negative. Co testing was done was negative. Pelvic ultrasound showed the following: IMPRESSION: There is a septated cystic region involving the lower uterine canal that measures 6 x 10 mm and was present in September 2024. The significance is uncertain, consider MRI of the pelvis without and with IV contrast. On pelvic exam there with the cervical 12:00 lesion, biopsy pathology showed the following: Cervical lesion, 12 o'clock, biopsy: Polypoid endocervical mucosa with acute cervicitis and squamous metaplasia; negative for squamous intraepithelial lesion Abnormal irregular menstrual cycles started after missing few control pills and since then has resolved PFSH Medical History Hx of bipolar disorder Cervical polyp Breast mass, right Irregular bleeding Anxiety Surgical History Hx of wisdom tooth extraction History of D&C Family History Father Diabetes Cancer Neuro-endocrine cancer Mother Diabetes Stroke Maternal Grandfather Cancer Mesothelioma Paternal Uncle Stomach cancer Family/Other FH: mental illness Social History Alcohol intake: former Patient Tobacco Use Status: Current someday Tobacco user Tobacco use type: Cigar Substance Use Type: Marijuana 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 Sexual orientation: Straight/Heterosexual Gender identity: Female Female Reproductive History Menstrual Age of Menarche: 10 Review of Systems Const All systems reviewed & are unremarkable except as noted in HPI and below Reports as per HPI and Reports no additional complaints GI Reports no additional complaints Reports no additional complaints Physical Exam Vital Signs: Last Vital Signs BP 108/60 04/11/25 07:45 BMI result Body Mass Index 23.4 Assessment & Plan Assessment & Plan (1) Abnormal uterine bleeding (AUB): Comment: Resolved Code(s): N93.9 - Abnormal uterine and vaginal bleeding, unspecified Category: Medical Plan: Discussed with the patient the results of the work up done and options of treatment the patient would like to stay on continuous BCP's. All questions answered the patient verbalized understanding. Coding Level of Care Code Est Pt Level 3 (96523) Diagnoses Abnormal uterine bleeding (AUB) N93.9
[2025-04-11 07:45] VITALS: BP 108/60; BMI 23.4
== END 2025-04-11 08:12 | disposition home or self-care (01) ==
LOC: HO.HWS 07:39
PROVIDERS: PCP Family Medicine; Visit Provider Obstetrics & Gynecology
DX: N93.9 Abnormal uterine and vaginal bleeding, unspecified (principal)
CPT/HCPCS: 99213

== ENCOUNTER → 2025-04-11 07:39 | Outpatient (BNVA) | payer OTHER, SELFPAY | PROVIDERS: PCP Family Medicine; Visit Provider Obstetrics & Gynecology | DX: N93.9 Abnormal uterine and vaginal bleeding, unspecified (principal); Z98.890 Other specified postprocedural states | CPT/HCPCS: 99212 ==